=== PATIENT | male | born 1990 | race Caucasian/White ===

== ENCOUNTER 2021-11-27 19:52 | Inpatient (IN) ==
[2021-11-27] MEDS ORDERED: PROPOFOL BOLUS FROM BAG IV PRN (20:07)
[2021-11-27] MEDS ORDERED: STAT IV Infusion **Titration per Protocol STA (20:07)
--- NOTE | 2021-11-27 20:12 | Emergency Department Note ---
History of Present Illness General Chief complaint: Unresponsive Stated complaint: HEAVY DRINKING/NOSEBLEED/UNRESPONSIVE/INTUBATED Time Seen by Provider: 11/27/21 20:00 History of Present Illness 31-year-old male presents to the ED via ambulance. The patient was found unresponsive by EMS. They stated that they got called for nosebleed. When they got there, the patient was unresponsive with decreased respirations and rhonchi. The patient reportedly drank 1/5 of Emile Oconnell. The patient was intubated by EMS without any sedation. After endotracheal intubation he was given 5 mg of IV Versed for sedation. No other information available at this time. His vital signs have been stable, per EMS. The patient's mother presented with EMS. She states that he has been suffering with some cold symptoms recently and had a positive COVID test on Tuesday. The patient reportedly drank a bottle of NyQuil yesterday. He also drank a bottle of black velvet, a bottle of [place] and a bottle of something else today. The mother states that he has no known medical problems with does not go to the doctors. Home Medications Medication Instructions Recorded Confirmed Type Unobtainable 11/27/21 11/27/21 History Allergies Allergy/AdvReac Type Severity Reaction Status Date / Time No Allergy Information Allergy Unresponsiv Verified 11/27/21 21:47 Available e Past Med/Surg History Social History Smoking Status: Unknown if ever smoked Review of Systems A total of 10 systems reviewed and were otherwise negative Physical Exam Vital Signs Vital Signs - 24 hr 11/27/21 19:58 11/27/21 20:02 11/27/21 20:04 Pulse Rate 96 H 94 H 83 Pulse Rate [Apical] Pulse Rate from SpO2 Sensor 93 H 83 Pulse Rhythm Respiratory Rate 21 19 20 Respiratory Effort / Characteristics Mechanically Ventilated Blood Pressure 165/91 H 165/91 H Blood Pressure Mean 115 115 Blood Pressure Position Lying Pulse Oximetry 90 90 94 Oxygen Delivery Method Mechanical Vent Fraction of Inspired Oxygen SaO2/FiO2 Ratio Sepsis New/Unexplained Change in Mental Status Yes Sepsis Action Taken by Nursing Physician Notified End-Tidal CO2 50 46 11/27/21 20:05 11/27/21 20:08 11/27/21 20:10 Pulse Rate 91 H 85 Pulse Rate [Apical] 87 Pulse Rate from SpO2 Sensor 86 Pulse Rhythm Respiratory Rate 19 22 Respiratory Effort / Characteristics Blood Pressure Blood Pressure Mean Blood Pressure Position Pulse Oximetry 97 93 89 L Oxygen Delivery Method Mechanical Vent Fraction of Inspired Oxygen 45 SaO2/FiO2 Ratio Sepsis New/Unexplained Change in Mental Status Sepsis Action Taken by Nursing End-Tidal CO2 46 11/27/21 20:14 11/27/21 20:16 11/27/21 20:20 Pulse Rate 87 86 83 Pulse Rate [Apical] Pulse Rate from SpO2 Sensor 86 82 Pulse Rhythm Regular Respiratory Rate 22 22 19 Respiratory Effort / Characteristics Blood Pressure 143/86 H Blood Pressure Mean 105 Blood Pressure Position Pulse Oximetry 93 92 94 Oxygen Delivery Method Mechanical Vent Fraction of Inspired Oxygen 45 SaO2/FiO2 Ratio 206 Sepsis New/Unexplained Change in Mental Status Sepsis Action Taken by Nursing End-Tidal CO2 46 41 11/27/21 20:41 11/27/21 20:50 11/27/21 20:56 Pulse Rate 79 76 Pulse Rate [Apical] Pulse Rate from SpO2 Sensor 79 76 Pulse Rhythm Respiratory Rate 18 18 20 Respiratory Effort / Characteristics Blood Pressure 125/72 Blood Pressure Mean 89 Blood Pressure Position Pulse Oximetry 96 96 Oxygen Delivery Method Fraction of Inspired Oxygen 45 SaO2/FiO2 Ratio Sepsis New/Unexplained Change in Mental Status Sepsis Action Taken by Nursing End-Tidal CO2 40 39 11/27/21 21:00 11/27/21 21:01 11/27/21 21:06 Pulse Rate 77 78 77 Pulse Rate [Apical] Pulse Rate from SpO2 Sensor 77 78 76 Pulse Rhythm Respiratory Rate 20 20 20 Respiratory Effort / Characteristics Blood Pressure 101/67 105/63 Blood Pressure Mean 78 77 Blood Pressure Position Pulse Oximetry 95 95 94 Oxygen Delivery Method Fraction of Inspired Oxygen SaO2/FiO2 Ratio Sepsis New/Unexplained Change in Mental Status Sepsis Action Taken by Nursing End-Tidal CO2 37 37 35 11/27/21 21:10 11/27/21 21:15 11/27/21 21:20 Pulse Rate 77 78 78 Pulse Rate [Apical] Pulse Rate from SpO2 Sensor 77 77 77 Pulse Rhythm Respiratory Rate 20 20 20 Respiratory Effort / Characteristics Blood Pressure 98/64 L 106/66 106/67 Blood Pressure Mean 75 79 80 Blood Pressure Position Pulse Oximetry 94 94 95 Oxygen Delivery Method Fraction of Inspired Oxygen SaO2/FiO2 Ratio Sepsis New/Unexplained Change in Mental Status Sepsis Action Taken by Nursing End-Tidal CO2 35 35 34 11/27/21 21:25 11/27/21 21:30 11/27/21 21:35 Pulse Rate 77 81 74 Pulse Rate [Apical] Pulse Rate from SpO2 Sensor 75 81 73 Pulse Rhythm Respiratory Rate 20 20 20 Respiratory Effort / Characteristics Blood Pressure 104/67 111/70 109/64 Blood Pressure Mean 79 83 79 Blood Pressure Position Pulse Oximetry 95 95 97 Oxygen Delivery Method Fraction of Inspired Oxygen SaO2/FiO2 Ratio Sepsis New/Unexplained Change in Mental Status Sepsis Action Taken by Nursing End-Tidal CO2 34 34 33 11/27/21 21:40 11/27/21 21:45 11/27/21 21:50 Pulse Rate 73 73 73 Pulse Rate [Apical] Pulse Rate from SpO2 Sensor 73 73 72 Pulse Rhythm Respiratory Rate 20 20 20 Respiratory Effort / Characteristics Blood Pressure 105/64 105/62 105/62 Blood Pressure Mean 77 76 76 Blood Pressure Position Pulse Oximetry 98 98 98 Oxygen Delivery Method Fraction of Inspired Oxygen SaO2/FiO2 Ratio Sepsis New/Unexplained Change in Mental Status Sepsis Action Taken by Nursing End-Tidal CO2 33 33 33 11/27/21 21:55 11/27/21 22:00 11/27/21 22:01 Pulse Rate 73 72 Pulse Rate [Apical] 72 Pulse Rate from SpO2 Sensor 72 73 Pulse Rhythm Respiratory Rate 20 20 Respiratory Effort / Characteristics Blood Pressure 105/66 Blood Pressure Mean 79 Blood Pressure Position Pulse Oximetry 98 97 Oxygen Delivery Method Fraction of Inspired Oxygen SaO2/FiO2 Ratio Sepsis New/Unexplained Change in Mental Status Sepsis Action Taken by Nursing End-Tidal CO2 33 33 CONSTITUTIONAL/VITAL SIGNS: Reviewed / noted above. GENERAL: Patient on ventilator. Mild cough on endotracheal tube. INTEGUMENTARY: Warm, dry, and [place]. HEAD: Normocephalic. EYES: without scleral icterus or trauma. Pupils are responsive to light although a little sluggish. ENT/OROPHARYNX: dried blood in bilateral nares. Endotracheal tube 7.5, 25 cm at the lips. RESPIRATORY: Mild bilateral rhonchi . CARDIOVASCULAR: Regular rate and rhythm. GI/ABDOMEN: Soft and nontender. No organomegaly or pulsatile mass. EXTREMITIES: Warm and well perfused. BACK: No CVA tenderness. NEUROLOGICAL: No verbal response. Does not follow commands. Pupils sluggish but responsive to light. Mild cough with endotracheal tube in place. No mov ement extremities with painful stimulus. MUSCULOSKELETAL: No obvious trauma TRIAGE NURSING DOCUMENTATION REVIEWED. Procedures ABG Interpretation ABG Interpretation 1: ABG Results: 7.2 6/47/74 on 45% oxygen via ventilator Additional Comments: ABG shows a acidosis likely related to respiratory and adequate oxygenation on 45% oxygen. The ventilator rate was increased from 18-20 following this ABG. Course Administered Medications Propofol (Diprivan) 1,000 mg in 100 mls @ 16.812 mls/hr IV .Q5H57M [facility]; Protocol Stop: 11/30/21 20:14 Last Titration: 11/27/21 22:55 Dose: 12 mcg/kg/min, 10.1 mls/hr Documented by: [id number] Titration: 11/27/21 21:19 Dose: 15 mcg/kg/min, 12.6 mls/hr Documented by: [id number] Titration: 11/27/21 21:01 Dose: 18 mcg/kg/min, 15.1 mls/hr Documented by: [id number] Admin: 11/27/21 20:25 Dose: 20 mcg/kg/min, 16.8 mls/hr Documented by: [id number] Cosigned by: [id number] Discontinued Medications Sodium Chloride (Nss 1000ml) 1,000 mls @ 999 mls/hr IV .Q1H1M [facility] Stop: 11/27/21 21:15 Last Infusion: 11/27/21 21:21 Dose: 0 mls/hr Documented by: [id number] Admin: 11/27/21 20:25 Dose: 999 mls/hr Documented by: [id number] Miscellaneous (Stat Iv Infusion Titration Per Protocol) 1 ea N/A NOW STA Stop: 11/27/21 20:08 Last Admin: 11/27/21: Dose: 1 ea Documented by: [id number] Critical Care Time Critical Care Time: Yes Total Critical Care Time: 50 I have personally spent 50 minutes of critical care time in the direct management of this patient. This includes bedside care, interpretation of diagnostic studies, and testing, discussion with consultants, patient, and family members, and other required patient management activities. This 50 minutes is in excess of all separately billable procedures. Medical Decision Making Differential Diagnosis Differential includes acute cardiac dysrhythmia, microinfarction, CVA, TIA, dehydration, anemia, electrolyte disturbance, seizure, trauma, intracranial bleeding, acute vascular catastrophe, thoracic aortic dissection, PE, abdominal aortic aneurysm rupture, infection, hypoglycemia, overdose, trauma. Medical Records Attestation: I reviewed the patient's medical records. Home Medications Current Medication List: was personally reviewed by me Laboratory Data Attestation: I reviewed the patient's lab results. Result diagrams: 11/27/21 20:05 11/27/21 20:05 Lab Results 11/27/21 11/27/21 11/27/21 Range/Units 20:05 20:05 20:05 WBC 6.53 (4.8-10.8) K/uL RBC 5.11 (4.7-6.1) M/uL Hgb 15.4 (14.0-18.0) g/dL POC Hgb (14.0-18.0) g/dl Hct 44.7 (42-52) % POC Hct (42-52) % MCV 87.5 (80-100) fL MCH 30.1 (25-34) pg MCHC 34.5 (32-36) g/dL RDW Std Deviation 41.7 (36.4-46.3) fL RDW Coeff of Fili 12.9 (11.5-14.5) % Plt Count 200 (130-400) K/uL MPV 10.3 (7.4-10.4) fL Immature Gran % (Auto) 0.3 % Neut % (Auto) 72.1 % Lymph % (Auto) 19.8 % [place] % (Auto) 5.8 % Eos % (Auto) 2.0 % Baso % (Auto) 0.0 % Neut # (Auto) 4.71 (1.4-6.5) K/uL Lymph # (Auto) 1.29 (1.2-3.4) K/uL [place] # (Auto) 0.38 (0.11-0.59) K/uL Eos # (Auto) 0.13 (0-0.5) K/uL Baso # (Auto) 0.00 (0-0.2) K/uL Immature Gran # (Auto) 0.02 (0.00-0.02) K/uL PT (9.0-12.0) Seconds INR (0.9-1.1) APTT (21.0-31.0) Seconds PTT Ratio POC pH (7.35-7.45) POC pCO2 (35-46) mmHg POC pO2 (80-95) mmHg POC HCO3 (19-24) julio/L POC Base Excess (-9-1.8) julio/L POC ABG O2 Sat (90-95) % POC Sodium (135-144) mmol/L Sodium 140 (136-145) mmol/L POC Potassium (3.3-5.0) mmol/L Potassium 3.4 L (3.5-5.1) mmol/L POC Chloride (101-112) mmol/L Chloride 106 (98-107) mmol/L Carbon Dioxide 26 (21-32) mmol/L POC Total CO2 (24-31) mmol/L Anion Gap 8 (3-11) POC Anion Gap (16-25) mmol/L POC BUN (7-18) mg/dl BUN 6 (6-23) mg/dl Creatinine 0.97 (0.6-1.4) mg/dl POC Creatinine (0.6-1.3) mg/dl Est Cr Clr Drug Dosing Not Reportable Est GFR ( Amer) 121.8 ml/min Est GFR (Non-Af Amer) 105.1 ml/min BUN/Creatinine Ratio 6.2 L (10-20) Glucose 125 H (70-99(Fasting)) mg/dl POC Glucose (70-99) mg/dl POC Glucose (other) (70-99) mg/dl Lactate (0.4-2.0) mmol/L Calcium 8.3 L (8.5-10.1) mg/dl POC Ioniz Calcium Lorne (1.12-1.32) mmol/l Total Bilirubin 0.2 (0.2-1.0) mg/dl AST 20 (13-39) U/L ALT 29 (7-52) U/L Alkaline Phosphatase 77 (34-104) U/L Troponin I High Sens 7.9 (0-20) pg/ml Total Protein 6.9 (6.0-8.3) gm/dl Albumin 4.3 (3.4-5.0) gm/dl Globulin 2.6 (2.5-4.0) gm/dl Albumin/Globulin Ratio 1.7 (0.9-2) Lipase 31 (11-82) U/L Procalcitonin < 0.05 (0-0.5) ng/ml TSH (0.300-4.500) uIu/ml Urine Color Urine Appearance (Clear) Urine pH (4.5-7.5) Ur Specific Mazon (1.000-1.030) Urine Protein (Negative) Urine Glucose (UA) (Negative) Urine Ketones (Negative) Urine Blood (Negative) Urine Nitrite (Negative) Urine Bilirubin (Negative) Urine Urobilinogen (Negative) Ur Leukocyte Esterase (Negative) Urine WBC (Auto) (0-5) /hpf Urine RBC (Auto) (0-4) /hpf U Hyaline Cast (Auto) (0-5) /lpf U Epithel Cells (Auto) (0-5) /lpf Urine Bacteria (Auto) (Negative) Salicylates (3.0-30) mg/dl Urine Opiates Screen (Neg) Ur Methadone, Qual (Neg) Acetaminophen (10-30) ug/ml Urine Barbiturates (Neg) Ur Phencyclidine (PCP) (Neg) U Amphetamin/Meth Scrn (Neg) MDMA (Ecstasy) Screen (Neg) U Benzodiazepines Scrn (Neg) Ur Cocaine Metabolite (Neg) U Marijuana (THC) Screen (Neg) Ethyl Alcohol mg/dL (<10.0) mg/dl SARS-CoV-2 (PCR) (Negative) Influenza Type A (PCR) (Neg) Influenza Type B (PCR) (Neg) RSV (RT-PCR) (Neg) 11/27/21 11/27/21 11/27/21 Range/Units 20:05 20:05 20:05 WBC (4.8-10.8) K/uL RBC (4.7-6.1) M/uL Hgb (14.0-18.0) g/dL POC Hgb (14.0-18.0) g/dl Hct (42-52) % POC Hct (42-52) % MCV (80-100) fL MCH (25-34) pg MCHC (32-36) g/dL RDW Std Deviation (36.4-46.3) fL RDW Coeff of Fili (11.5-14.5) % Plt Count (130-400) K/uL MPV (7.4-10.4) fL Immature Gran % (Auto) % Neut % (Auto) % Lymph % (Auto) % [place] % (Auto) % Eos % (Auto) % Baso % (Auto) % Neut # (Auto) (1.4-6.5) K/uL Lymph # (Auto) (1.2-3.4) K/uL [place] # (Auto) (0.11-0.59) K/uL Eos # (Auto) (0-0.5) K/uL Baso # (Auto) (0-0.2) K/uL Immature Gran # (Auto) (0.00-0.02) K/uL PT 10.3 (9.0-12.0) Seconds INR 1.0 (0.9-1.1) APTT 30.8 (21.0-31.0) Seconds PTT Ratio 1.1 POC pH (7.35-7.45) POC pCO2 (35-46) mmHg POC pO2 (80-95) mmHg POC HCO3 (19-24) julio/L POC Base Excess (-9-1.8) julio/L POC ABG O2 Sat (90-95) % POC Sodium (135-144) mmol/L Sodium (136-145) mmol/L POC Potassium (3.3-5.0) mmol/L Potassium (3.5-5.1) mmol/L POC Chloride (101-112) mmol/L Chloride (98-107) mmol/L Carbon Dioxide (21-32) mmol/L POC Total CO2 (24-31) mmol/L Anion Gap (3-11) POC Anion Gap (16-25) mmol/L POC BUN (7-18) mg/dl BUN (6-23) mg/dl Creatinine (0.6-1.4) mg/dl POC Creatinine (0.6-1.3) mg/dl Est Cr Clr Drug Dosing Est GFR ( Amer) ml/min Est GFR (Non-Af Amer) ml/min BUN/Creatinine Ratio (10-20) Glucose (70-99(Fasting)) mg/dl POC Glucose (70-99) mg/dl POC Glucose (other) (70-99) mg/dl Lactate (0.4-2.0) mmol/L Calcium (8.5-10.1) mg/dl POC Ioniz Calcium Lorne (1.12-1.32) mmol/l Total Bilirubin (0.2-1.0) mg/dl AST (13-39) U/L ALT (7-52) U/L Alkaline Phosphatase (34-104) U/L Troponin I High Sens (0-20) pg/ml Total Protein (6.0-8.3) gm/dl Albumin (3.4-5.0) gm/dl Globulin (2.5-4.0) gm/dl Albumin/Globulin Ratio (0.9-2) Lipase (11-82) U/L Procalcitonin (0-0.5) ng/ml TSH 0.680 (0.300-4.500) uIu/ml Urine Color Urine Appearance (Clear) Urine pH (4.5-7.5) Ur Specific [place]on (1.000-1.030) Urine Protein (Negative) Urine Glucose (UA) (Negative) Urine Ketones (Negative) Urine Blood (Negative) Urine Nitrite (Negative) Urine Bilirubin (Negative) Urine Urobilinogen (Negative) Ur Leukocyte Esterase (Negative) Urine WBC (Auto) (0-5) /hpf Urine RBC (Auto) (0-4) /hpf U Hyaline Cast (Auto) (0-5) /lpf U Epithel Cells (Auto) (0-5) /lpf Urine Bacteria (Auto) (Negative) Salicylates (3.0-30) mg/dl Urine Opiates Screen (Neg) Ur Methadone, Qual (Neg) Acetaminophen (10-30) ug/ml Urine Barbiturates (Neg) Ur Phencyclidine (PCP) (Neg) U Amphetamin/Meth Scrn (Neg) MDMA (Ecstasy) Screen (Neg) U Benzodiazepines Scrn (Neg) Ur Cocaine Metabolite (Neg) U Marijuana (THC) Screen (Neg) Ethyl Alcohol mg/dL 453.7 H (<10.0) mg/dl SARS-CoV-2 (PCR) (Negative) Influenza Type A (PCR) (Neg) Influenza Type B (PCR) (Neg) RSV (RT-PCR) (Neg) 11/27/21 11/27/21 11/27/21 Range/Units 20:13 20:13 20:17 WBC (4.8-10.8) K/uL RBC (4.7-6.1) M/uL Hgb (14.0-18.0) g/dL POC Hgb (14.0-18.0) g/dl Hct (42-52) % POC Hct (42-52) % MCV (80-100) fL MCH (25-34) pg MCHC (32-36) g/dL RDW Std Deviation (36.4-46.3) fL RDW Coeff of Fili (11.5-14.5) % Plt Count (130-400) K/uL MPV (7.4-10.4) fL Immature Gran % (Auto) % Neut % (Auto) % Lymph % (Auto) % [place] % (Auto) % Eos % (Auto) % Baso % (Auto) % Neut # (Auto) (1.4-6.5) K/uL Lymph # (Auto) (1.2-3.4) K/uL [place] # (Auto) (0.11-0.59) K/uL Eos # (Auto) (0-0.5) K/uL Baso # (Auto) (0-0.2) K/uL Immature Gran # (Auto) (0.00-0.02) K/uL PT (9.0-12.0) Seconds INR (0.9-1.1) APTT (21.0-31.0) Seconds PTT Ratio POC pH (7.35-7.45) POC pCO2 (35-46) mmHg POC pO2 (80-95) mmHg POC HCO3 (19-24) julio/L POC Base Excess (-9-1.8) julio/L POC ABG O2 Sat (90-95) % POC Sodium (135-144) mmol/L Sodium (136-145) mmol/L POC Potassium (3.3-5.0) mmol/L Potassium (3.5-5.1) mmol/L POC Chloride (101-112) mmol/L Chloride (98-107) mmol/L Carbon Dioxide (21-32) mmol/L POC Total CO2 (24-31) mmol/L Anion Gap (3-11) POC Anion Gap (16-25) mmol/L POC BUN (7-18) mg/dl BUN (6-23) mg/dl Creatinine (0.6-1.4) mg/dl POC Creatinine (0.6-1.3) mg/dl Est Cr Clr Drug Dosing Est GFR ( Amer) ml/min Est GFR (Non-Af Amer) ml/min BUN/Creatinine Ratio (10-20) Glucose (70-99(Fasting)) mg/dl POC Glucose 129 H (70-99) mg/dl POC Glucose (other) (70-99) mg/dl Lactate (0.4-2.0) mmol/L Calcium (8.5-10.1) mg/dl POC Ioniz Calcium Lorne (1.12-1.32) mmol/l Total Bilirubin (0.2-1.0) mg/dl AST (13-39) U/L ALT (7-52) U/L Alkaline Phosphatase (34-104) U/L Troponin I High Sens (0-20) pg/ml Total Protein (6.0-8.3) gm/dl Albumin (3.4-5.0) gm/dl Globulin (2.5-4.0) gm/dl Albumin/Globulin Ratio (0.9-2) Lipase (11-82) U/L Procalcitonin (0-0.5) ng/ml TSH (0.300-4.500) uIu/ml Urine Color Yellow Urine Appearance Clear (Clear) Urine pH 5.0 (4.5-7.5) Ur Specific Mazon 1.006 (1.000-1.030) Urine Protein 2+ H (Negative) Urine Glucose (UA) Negative (Negative) Urine Ketones Negative (Negative) Urine Blood Negative (Negative) Urine Nitrite Negative (Negative) Urine Bilirubin Negative (Negative) Urine Urobilinogen Negative (Negative) Ur Leukocyte Esterase Negative (Negative) Urine WBC (Auto) 1-5 (0-5) /hpf Urine RBC (Auto) 0-4 (0-4) /hpf U Hyaline Cast (Auto) 5-10 H (0-5) /lpf U Epithel Cells (Auto) 10-20 H (0-5) /lpf Urine Bacteria (Auto) Negative (Negative) Salicylates (3.0-30) mg/dl Urine Opiates Screen Neg (Neg) Ur Methadone, Qual Neg (Neg) Acetaminophen (10-30) ug/ml Urine Barbiturates Neg (Neg) Ur Phencyclidine (PCP) Neg (Neg) U Amphetamin/Meth Scrn Neg (Neg) MDMA (Ecstasy) Screen Neg (Neg) U Benzodiazepines Scrn Pos H (Neg) Ur Cocaine Metabolite Neg (Neg) U Marijuana (THC) Screen Neg (Neg) Ethyl Alcohol mg/dL (<10.0) mg/dl SARS-CoV-2 (PCR) (Negative) Influenza Type A (PCR) (Neg) Influenza Type B (PCR) (Neg) RSV (RT-PCR) (Neg) 11/27/21 11/27/21 11/27/21 Range/Units 20:21 20:25 20:50 WBC (4.8-10.8) K/uL RBC (4.7-6.1) M/uL Hgb (14.0-18.0) g/dL POC Hgb 15.6 (14.0-18.0) g/dl Hct (42-52) % POC Hct 46 (42-52) % MCV (80-100) fL MCH (25-34) pg MCHC (32-36) g/dL RDW Std Deviation (36.4-46.3) fL RDW Coeff of Fili (11.5-14.5) % Plt Count (130-400) K/uL MPV (7.4-10.4) fL Immature Gran % (Auto) % Neut % (Auto) % Lymph % (Auto) % [place] % (Auto) % Eos % (Auto) % Baso % (Auto) % Neut # (Auto) (1.4-6.5) K/uL Lymph # (Auto) (1.2-3.4) K/uL [place] # (Auto) (0.11-0.59) K/uL Eos # (Auto) (0-0.5) K/uL Baso # (Auto) (0-0.2) K/uL Immature Gran # (Auto) (0.00-0.02) K/uL PT (9.0-12.0) Seconds INR (0.9-1.1) APTT (21.0-31.0) Seconds PTT Ratio POC pH (7.35-7.45) POC pCO2 (35-46) mmHg POC pO2 (80-95) mmHg POC HCO3 (19-24) julio/L POC Base Excess (-9-1.8) julio/L POC ABG O2 Sat (90-95) % POC Sodium 142 (135-144) mmol/L Sodium (136-145) mmol/L POC Potassium 3.5 (3.3-5.0) mmol/L Potassium (3.5-5.1) mmol/L POC Chloride 105 (101-112) mmol/L Chloride (98-107) mmol/L Carbon Dioxide (21-32) mmol/L POC Total CO2 27 (24-31) mmol/L Anion Gap (3-11) POC Anion Gap 15.0 L (16-25) mmol/L POC BUN 5 L (7-18) mg/dl BUN (6-23) mg/dl Creatinine (0.6-1.4) mg/dl POC Creatinine 1.3 (0.6-1.3) mg/dl Est Cr Clr Drug Dosing Est GFR ( Amer) ml/min Est GFR (Non-Af Amer) ml/min BUN/Creatinine Ratio (10-20) Glucose (70-99(Fasting)) mg/dl POC Glucose (70-99) mg/dl POC Glucose (other) 129 H (70-99) mg/dl Lactate 2.6 H* (0.4-2.0) mmol/L Calcium (8.5-10.1) mg/dl POC Ioniz Calcium Lorne 1.09 L (1.12-1.32) mmol/l Total Bilirubin (0.2-1.0) mg/dl AST (13-39) U/L ALT (7-52) U/L Alkaline Phosphatase (34-104) U/L Troponin I High Sens (0-20) pg/ml Total Protein (6.0-8.3) gm/dl Albumin (3.4-5.0) gm/dl Globulin (2.5-4.0) gm/dl Albumin/Globulin Ratio (0.9-2) Lipase (11-82) U/L Procalcitonin (0-0.5) ng/ml TSH (0.300-4.500) uIu/ml Urine Color Urine Appearance (Clear) Urine pH (4.5-7.5) Ur Specific Mazon (1.000-1.030) Urine Protein (Negative) Urine Glucose (UA) (Negative) Urine Ketones (Negative) Urine Blood (Negative) Urine Nitrite (Negative) Urine Bilirubin (Negative) Urine Urobilinogen (Negative) Ur Leukocyte Esterase (Negative) Urine WBC (Auto) (0-5) /hpf Urine RBC (Auto) (0-4) /hpf U Hyaline Cast (Auto) (0-5) /lpf U Epithel Cells (Auto) (0-5) /lpf Urine Bacteria (Auto) (Negative) Salicylates < 3.0 L (3.0-30) mg/dl Urine Opiates Screen (Neg) Ur Methadone, Qual (Neg) Acetaminophen < 3 L (10-30) ug/ml Urine Barbiturates (Neg) Ur Phencyclidine (PCP) (Neg) U Amphetamin/Meth Scrn (Neg) MDMA (Ecstasy) Screen (Neg) U Benzodiazepines Scrn (Neg) Ur Cocaine Metabolite (Neg) U Marijuana (THC) Screen (Neg) Ethyl Alcohol mg/dL (<10.0) mg/dl SARS-CoV-2 (PCR) (Negative) Influenza Type A (PCR) (Neg) Influenza Type B (PCR) (Neg) RSV (RT-PCR) (Neg) 11/27/21 11/27/21 11/27/21 Range/Units 20:53 21:27 22:11 WBC (4.8-10.8) K/uL RBC (4.7-6.1) M/uL Hgb (14.0-18.0) g/dL POC Hgb 14.6 (14.0-18.0) g/dl Hct (42-52) % POC Hct 43 (42-52) % MCV (80-100) fL MCH (25-34) pg MCHC (32-36) g/dL RDW Std Deviation (36.4-46.3) fL RDW Coeff of Fili (11.5-14.5) % Plt Count (130-400) K/uL MPV (7.4-10.4) fL Immature Gran % (Auto) % Neut % (Auto) % Lymph % (Auto) % [place] % (Auto) % Eos % (Auto) % Baso % (Auto) % Neut # (Auto) (1.4-6.5) K/uL Lymph # (Auto) (1.2-3.4) K/uL [place] # (Auto) (0.11-0.59) K/uL Eos # (Auto) (0-0.5) K/uL Baso # (Auto) (0-0.2) K/uL Immature Gran # (Auto) (0.00-0.02) K/uL PT (9.0-12.0) Seconds INR (0.9-1.1) APTT (21.0-31.0) Seconds PTT Ratio POC pH 7.26 L (7.35-7.45) POC pCO2 47 H (35-46) mmHg POC pO2 74 L (80-95) mmHg POC HCO3 21 (19-24) julio/L POC Base Excess -6.0 (-9-1.8) julio/L POC ABG O2 Sat 92.0 (90-95) % POC Sodium 141 (135-144) mmol/L Sodium (136-145) mmol/L POC Potassium 3.3 (3.3-5.0) mmol/L Potassium (3.5-5.1) mmol/L POC Chloride (101-112) mmol/L Chloride (98-107) mmol/L Carbon Dioxide (21-32) mmol/L POC Total CO2 23 L (24-31) mmol/L Anion Gap (3-11) POC Anion Gap (16-25) mmol/L POC BUN (7-18) mg/dl BUN (6-23) mg/dl Creatinine (0.6-1.4) mg/dl POC Creatinine (0.6-1.3) mg/dl Est Cr Clr Drug Dosing Est GFR ( Amer) ml/min Est GFR (Non-Af Amer) ml/min BUN/Creatinine Ratio (10-20) Glucose (70-99(Fasting)) mg/dl POC Glucose (70-99) mg/dl POC Glucose (other) (70-99) mg/dl Lactate 1.8 (0.4-2.0) mmol/L Calcium (8.5-10.1) mg/dl POC Ioniz Calcium Lorne (1.12-1.32) mmol/l Total Bilirubin (0.2-1.0) mg/dl AST (13-39) U/L ALT (7-52) U/L Alkaline Phosphatase (34-104) U/L Troponin I High Sens (0-20) pg/ml Total Protein (6.0-8.3) gm/dl Albumin (3.4-5.0) gm/dl Globulin (2.5-4.0) gm/dl Albumin/Globulin Ratio (0.9-2) Lipase (11-82) U/L Procalcitonin (0-0.5) ng/ml TSH (0.300-4.500) uIu/ml Urine Color Urine Appearance (Clear) Urine pH (4.5-7.5) Ur Specific Mazon (1.000-1.030) Urine Protein (Negative) Urine Glucose (UA) (Negative) Urine Ketones (Negative) Urine Blood (Negative) Urine Nitrite (Negative) Urine Bilirubin (Negative) Urine Urobilinogen (Negative) Ur Leukocyte Esterase (Negative) Urine WBC (Auto) (0-5) /hpf Urine RBC (Auto) (0-4) /hpf U Hyaline Cast (Auto) (0-5) /lpf U Epithel Cells (Auto) (0-5) /lpf Urine Bacteria (Auto) (Negative) Salicylates (3.0-30) mg/dl Urine Opiates Screen (Neg) Ur Methadone, Qual (Neg) Acetaminophen (10-30) ug/ml Urine Barbiturates (Neg) Ur Phencyclidine (PCP) (Neg) U Amphetamin/Meth Scrn (Neg) MDMA (Ecstasy) Screen (Neg) U Benzodiazepines Scrn (Neg) Ur Cocaine Metabolite (Neg) U Marijuana (THC) Screen (Neg) Ethyl Alcohol mg/dL (<10.0) mg/dl SARS-CoV-2 (PCR) POSITIVE A* (Negative) Influenza Type A (PCR) Negative (Neg) Influenza Type B (PCR) Negative (Neg) RSV (RT-PCR) Negative (Neg) Imaging Data Radiologist's Impression: Chest X-Ray 11/27/21 20:01 XR chest 1V portable supine CLINICAL HISTORY: Intubation. COMPARISON STUDY: No previous studies for comparison. FINDINGS: Tip of endotracheal tube is 3.8 cm above the sujatha. No pneumothorax is identified on this supine exam. Left lower lobe airspace opacity is present. Cardiac silhouette is prominent, likely technical. No evidence for pulmonary edema. No definite pleural effusion. Possible suprahilar opacities which are likely artifactual. IMPRESSION: 1. Tip of endotracheal tube 3.8 cm above the sujatha. 2. Left lower lobe airspace opacity. This could reflect pneumonia, aspiration pneumonitis or atelectasis. Possible suprahilar opacities. ACT 112: Negative or not required by law. Electronically signed by: Dhaval Garibay M.D. 11/27/2021 8:[address] 11/27/21 20:07 CT OF THE HEAD WITHOUT CONTRAST CLINICAL HISTORY: unresponsive COMPARISON STUDY: No previous studies for comparison. CT DOSE: 773.57 mGy.cm TECHNIQUE: Helical axial images of the head were obtained without IV contrast. Automated exposure control was utilized for the study. A dose lowering technique was utilized adhering to the principles of ALARA. FINDINGS: No acute intracranial hemorrhage, midline shift or mass effect is present. The ventricular system is unremarkable. The basal cisterns are patent. No extra-axial collections are present. There are no findings to suggest acute dural sinus thrombosis or acute territorial infarct. No significant calvarial abnormalities are present. Ethmoid sinus mucosal thickening is incidentally noted. There are suspected small occipital/upper cervical lymph nodes. IMPRESSION: No acute intracranial findings. ACT 112: Negative or not required by law. Electronically signed by: Dhaval Garibay M.D. 11/27/2021 8:40 PM ECG Data Attestation: I personally reviewed and interpreted this ECG as follows: Additional Comments: Twelve-lead EKG: Per my interpretation shows a sinus tachycardia rate of 103. No ST elevation. No PVCs. Normal QTC. MDM Narrative 31-year-old male presents intubated by EMS. He reportedly drank 1/5 of [place]. He was unresponsive when EMS arrived and has some rhonchi and respiratory issues for which she was intubated. Transported here for further evaluation. Patient does have some dried blood in the nares bilaterally. Endotracheal tube is in place. Mild cough against ventilator but otherwise no purposeful movements and no movement to painful stimuli. EKG shows a sinus tach. Chest x-ray shows a possible left lower lobe opacity. This would be most likely aspiration. CBC and chemistry panel was unremarkable. ABG shows a mild respiratory acidosis. Urinalysis was negative. Alcohol level is 453. CT scan of the brain did not show acute process. Lactic acid was 2.6. Procalcitonin was negative. The test results are noted above. COVID test was positive. The patient remained stable on the ventilator. He was placed on a propofol drip for sedation. He was given a liter of normal saline IV. He will be seen by the hospitalist and check airman for further evaluation and care. Impression & Plan Unresponsive, Respiratory failure, Alcohol intoxication, COVID-19 Discharge Plan Visit Data Chief Complaint: Unresponsive Stated Complaint: HEAVY DRINKING/NOSEBLEED/UNRESPONSIVE/INTUBATED ED Provider: Andrei Aviles Discharge Problem: Unresponsive, Respiratory failure, Alcohol intoxication, COVID-19 Patient Disposition: Being Evaluated by Hospitalist Forms Stand Alone Forms: [employer] Prescriptions Prescriptions: No Action Unobtainable RF: 0 Referrals Referrals: PCP,NO [Primary Care Provider] -
[2021-11-27] MEDS ORDERED: SODIUM CHLORIDE 0.9% 1000ML 1,000 ML IV SCH (20:15)
--- NOTE | 2021-11-27 20:24 | XRay Report ---
XR chest 1V portable supine CLINICAL HISTORY: Intubation. COMPARISON STUDY: No previous studies for comparison. FINDINGS: Tip of endotracheal tube is 3.8 cm above the sujatha. No pneumothorax is identified on this supine exam. Left lower lobe airspace opacity is present. Cardiac silhouette is prominent, likely janette hnical. No evidence for pulmonary edema. No definite pleural effusion. Possible suprahilar opacities which are likely artifactual. IMPRESSION: 1. Tip of endotracheal tube 3.8 cm above the sujatha. 2. Left lower lobe airspace opacity. This could reflect pneumonia, aspiration pneumonitis or atelecta sis. Possible suprahilar opacities. ACT 112: Negative or not required by law. Electronically signed by: Dhaval Garibay M.D. 11/27/2021 8:22 PM
[2021-11-27] MEDS: propofoL 1,000 MG/100 ML VIAL IV SCH (20:25)
[2021-11-27 20:26] LABS: Eosinophils # (auto) 0.13 K/uL (0-0.5); Hematocrit (blood only) 44.7 % (42-52); Hemoglobin 15.4 g/dL (14.0-18.0); Immature Granulocytes # (auto) 0.02 K/uL (0.00-0.02); Immature Granulocytes % (auto) 0.3 %; Lymphocytes # (auto) 1.29 K/uL (1.2-3.4); Lymphocytes % (auto) 19.8 %; Mean Corpuscular Hemoglobin 30.1 pg (25-34); Mean Corpuscular Hgb Conc 34.5 g/dL (32-36); Mean Corpuscular Volume 87.5 fL (80-100); Mean Platelet Volume 10.3 fL (7.4-10.4); Monocytes # (auto) 0.38 K/uL (0.11-0.59); Monocytes % (auto) 5.8 %; Neutrophils # (auto) 4.71 K/uL (1.4-6.5); Neutrophils % (auto) 72.1 %; Platelet Count 200 K/uL (130-400); RDW Coefficient of Variation 12.9 % (11.5-14.5); RDW Standard Deviation 41.7 fL (36.4-46.3); Red Blood Count 5.11 M/uL (4.7-6.1); White Blood Count 6.53 K/uL (4.8-10.8)
[2021-11-27 20:30] LABS: Appearance Urine Clear (Clear); Bacteria Urine Automated Negative (Negative); Bilirubin Urine Negative (Negative); Blood Urine Negative (Negative); Color Urine Yellow; Glucose Urine UA Negative (Negative); Ketones Urine Negative (Negative); Leukocyte Esterase Urine Negative (Negative); Nitrite Urine Negative (Negative); Protein Urine 2+ (Negative); RBC Urine Automated 0-4 /hpf (0-4); Specific Gravity Urine 1.006 (1.000-1.030); Urobilinogen Urine Negative (Negative)
[2021-11-27 20:35] LABS: iSTAT Creatinine 1.3 mg/dl (0.6-1.3); iSTAT Hemoglobin 15.6 g/dl (14.0-18.0); iSTAT Ionized Calcium 1.09 mmol/l (1.12-1.32); iSTAT Potassium 3.5 mmol/L (3.3-5.0)
[2021-11-27 20:40] LABS: Partial Thromboplastin Ratio 1.1; Partial Thromboplastin Time 30.8 Seconds (21.0-31.0); Prothrombin Time 10.3 Seconds (9.0-12.0)
--- NOTE | 2021-11-27 20:41 | CT Scan Report ---
CT OF THE HEAD WITHOUT CONTRAST CLINICAL HISTORY: unresponsive COMPARISON STUDY: No previous studies for comparison. CT DOSE: 773.57 mGy.cm TECHNIQUE: Helical axial images of the head were obtained without IV contrast. Automated exposure con trol was utilized for the study. A dose lowering technique was utilized adhering to the principles o f ALARA. FINDINGS: No acute intracranial hemorrhage, midline shift or mass effect is present. The ventricular system is unremarkable. The basal cisterns are patent. No extra-axial collections are present. There are no findings to suggest acute dural sinus thrombosis or acute territorial infarct. No significant calvarial abnormalities are present. Ethmoid sinus mucosal thickening is incidentally noted. There ar e suspected small occipital/upper cervical lymph nodes. IMPRESSION: No acute intracranial findings. ACT 112: Negative or not required by law. Electronically signed by: Dhaval Garibay M.D. 11/27/2021 8:40 PM
[2021-11-27 20:49] LABS: Troponin I High Sensitivity 7.9 pg/ml (0-20)
[2021-11-27 20:53] LABS: Amphetamines+Metham, Urine Neg (Neg); Barbiturates, Urine Neg (Neg); Benzodiazepine, Urine Pos (Neg); Cocaine, Urine Neg (Neg); MDMA (Ecstacy), Urine Neg (Neg); Methadone, Urine Neg (Neg); Opiate, Urine Neg (Neg); Phencyclidine, Urine Neg (Neg)
[2021-11-27 20:54] LABS: Alanine Aminotransferase 29 U/L (7-52); Albumin Globulin Ratio 1.7 (0.9-2); Albumin Level 4.3 gm/dl (3.4-5.0); Alkaline Phosphatase 77 U/L (34-104); Anion Gap 8 (3-11); Aspartate Aminotransferase 20 U/L (13-39); BUN Creatinine Ratio 6.2 (10-20); Bilirubin,Total 0.2 mg/dl (0.2-1.0); Blood Urea Nitrogen 6 mg/dl (6-23); Calcium 8.3 mg/dl (8.5-10.1); Carbon Dioxide 26 mmol/L (21-32); Chloride 106 mmol/L (98-107); Est GFR (African American) 121.8 ml/min; Est GFR (Non-African American) 105.1 ml/min; Globulin 2.6 gm/dl (2.5-4.0); Glucose 125 mg/dl (70-99(Fasting)); Lipase 31 U/L (11-82); Potassium 3.4 mmol/L (3.5-5.1); Sodium 140 mmol/L (136-145); Total Protein 6.9 gm/dl (6.0-8.3)
[2021-11-27 21:08] LABS: iSTAT Arterial Blood Gas HCO3 21 meg/L (19-24); iSTAT Arterial Blood Gas pCO2 47 mmHg (35-46); iSTAT Arterial Blood Gas pH 7.26 (7.35-7.45); iSTAT Arterial Blood Gas pO2 74 mmHg (80-95); iSTAT Carbon Dioxide 23 mmol/L (24-31); iSTAT Hematocrit 43 % (42-52); iSTAT Hemoglobin 14.6 g/dl (14.0-18.0); iSTAT Potassium 3.3 mmol/L (3.3-5.0); iSTAT Sodium 141 mmol/L (135-144)
[2021-11-27 21:16] LABS: Acetaminophen < 3 ug/ml (10-30); Salicylate < 3.0 mg/dl (3.0-30)
[2021-11-27 22:28] LABS: Influenza A virus by PCR Negative (Neg); Influenza B virus by PCR Negative (Neg); RSV by PCR Negative (Neg)
[2021-11-27] MEDS ORDERED: CONSULT PHARMACY STA (22:39)
[2021-11-27 23:01] LABS: SARS CoV2 RNA(COVID-19) InHosp POSITIVE (Negative)
[2021-11-28] MEDS ORDERED: ICU PROTOCOL FOR HYPERGLYCEMIA PRN (00:06)
[2021-11-28] MEDS ORDERED: AMPICILLIN/SULBACTAM CONSULT ACTIVE PRN (00:12)
[2021-11-28] MEDS ORDERED: fentaNYL citrate 100 MCG/2 ML VIAL IV PRN (00:24)
--- NOTE | 2021-11-28 00:30 | Critical Care Consultation ---
Date of Consultation November 28, 2021 Assessment & Plan (1) Admitted to intensive care unit: Reason Critically Ill: 31-year-old male requiring intubation and sedation in the setting of EtOH overdose. Patient consistently testing positive for COVID-19. NEURO - * CAM ICU: Unable to assess. * Unresponsive: * Likely 2/2 EtOH overdose. * Medical EtOH 453.7. Will recheck in AM. * To remain intubated until EtOH clears. * CT Head/Brain unremarkable. * No falls, trauma, etc reported. * There was question of NyQuil use in large amounts as well. APAP level WNL. Hospitalist discussed w/ Poison Control. Continue to monitor for now. NAC not recommended currently. CARDIAC/VASCULAR - * No h/o cardiovascular disease otherwise. * Monitor on telemetry. RESPIRATORY - * Respiratory Failure: * Likely 2/2 EtOH overdose. * Titrate down ventilator settings as tolerated. GI/NUTRITION - * OGT in place. * NPO overnight. Anticipate early extubation. RENAL/LYTES - * Hypokalemia. Replace * IVF: NSS - * Cleaning in place - Strict I&Os. ENDO - * No h/o DM or Thyroid Dz * BSGs per unit protocol. ISS --> gtt per unit policy. HEME - * Nosebleeds: * Apparently these have been recurrent. * Heme/Coags wnl. * Outpatient ENT f/u ID - * COVID-19 Positive: * Reported fevers at home. * Intubated, but not 2/2 respiratory component. * No indication for treatment modalities otherwise at this point. * ?? Aspiration pneumonitis: * Unasyn for now. Can transition to PO Augmentin when able. LINES/IV ACCESS - * PIVs x3 * ETT * OGT * Cleaning DVT PROPHYLAXIS - * Hold overnight in the setting of recent nosebleeds and plan for early extubation. * SCDs I have personally spent 35 minutes of critical care time in the direct managem ent of this patient. This is a life/limb threatening event. This includes time spent evaluating patient, direct bedside care, chart review, placing orders, interpretation of diagnostic studies, discussion with consultants, patient, and family members, as well as other required patient management activities. This time is exclusive of all separately billable procedures, and teaching time and separate from and in addition to any other critical care service time. Thank you for allowing us to participate in the care of this patient. Please refer to my attending physician's documentation for any further recommendations. (2) Alcohol intoxication: (3) COVID-19: (4) Respiratory failure: (5) Unresponsive: Supervising Physician Co-Signing Physician Notes Agree with the note as above. Patient self extubated today. Appears to be maintaining his airway. Remains hemodynamically stable. Monitor for signs of alcohol withdrawal. We will give a dose of labetalol for hypertension. COVID- 19 likely a incidental finding. He does not have clinical findings of symptomatic COVID. Chest x-ray with hypoventilatory changes and atelectasis. History of Present Illness Attending Physician: Von Brown MD History of Present Illness Patient is a 31-year-old male with no reported significant past medical history who presented to the emergency department intubated for suspected alcohol overdose. Patient has been apparently struggling with nosebleeds recently. Additionally, the patient was having fevers and symptoms consistent with COVID- 19 diagnosis. He had taken a home test which was positive. He was self- medicating with NyQuil and alcohol. Patient had apparently taken a whole bottle of NyQuil over a 48-hour period. Additionally, he drank several ounces of alcohol. His mother found him unconscious and contacted EMS. There is no reports of falls, injury, or trauma otherwise. He was intubated in route to the emergency department. Upon evaluation in the emergency department, CT of the head was obtained which was found to be unremarkable. Medical alcohol greater than 450. Patient remains sedated on propofol. Patient tested positive for Covid. Patient unable to contribute to history of present illness. Allergies Allergy/AdvReac Type Severity Reaction Status Date / Time No Allergy Information Allergy Unresponsiv Verified 11/27/21 21:47 Available e Home Medications Medication Instructions Recorded Confirmed Type Unobtainable 11/27/21 11/27/21 History Patient History Social History Smoking Status: Unknown if ever smoked Hx Alcohol Use: Yes Preferred Language: Lithuanian Piano Case Maker Required: No Beliefs That Will Affect Care: None Current Living Situation: Family Assistive Devices: None Review of Systems Review of Systems: Unobtainable due to cognitive status and Unobtainable due to endotracheal tube Physical Exam Physical Exam: VITAL SIGNS - Vital signs and nursing notes were reviewed. GENERAL - 31-year-old male appearing his stated age who is in no acute distress. Intubated and sedated. SKIN - Without rashes. HEAD - NC/AT. EYES - PERRL with EOMI bilaterally. Sclera anicteric. EARS - No deformities of external structures noted on gross examination bilaterally. NOSE - Midline and without cyanosis. Dried blood noted to the LEFT naris. MOUTH/OROPHARYNX - ETT/OGT in place. Without perioral cyanosis. NECK - Neck with FROM. Supple to palpation. No lymphadenopathy noted. No nuchal rigidity. LUNGS - Chest wall symmetric without accessory muscle use, intercostals retractions, or central cyanosis. Breath sounds diminished throughout. CARDIAC - RRR with S1/S2. No murmur, rubs, or gallops appreciated. ABDOMEN - Abdominal contour obese without pulsations or visible masses. BS normoactive all four quadrants. No tenderness, palpable masses, hepatosplenomegaly, or ascites noted. EXTREMITIES - No clubbing or peripheral cyanosis. No pretibial edema present. +3/5 radial and dorsalis pedis pulses palpated throughout. NEUROLOGIC - No focal neurological deficits noted. Unable to fully assess secondary to AMS/sedation. Results & Data Results & Data ([facility]) Vital Signs (Past 12 Hours) Vital Signs Pulse Pulse Resp BP Pulse Ox 11/27/21 23:40 63 20 99 11/27/21 23:25 66 20 100/69 100 11/27/21 23:20 66 20 102/68 100 11/27/21 23:15 68 20 102/62 100 11/27/21 23:10 68 20 101/61 100 11/27/21 23:05 68 20 101/60 99 11/27/21 23:00 69 20 100/62 99 11/27/21 22:55 69 20 100/60 99 11/27/21 22:50 69 20 100/60 99 11/27/21 22:45 70 20 101/61 99 11/27/21 22:40 70 20 102/59 L 98 11/27/21 22:35 71 20 100/60 99 11/27/21 22:30 71 20 103/62 98 11/27/21 22:25 71 20 102/60 98 11/27/21 22:20 71 20 102/61 98 11/27/21 22:15 71 20 103/62 98 11/27/21 22:11 70 20 103/61 98 11/27/21 22:05 72 20 106/61 98 11/27/21 22:01 72 11/27/21 22:00 72 20 97 11/27/21 21:55 73 20 105/66 98 11/27/21 21:50 73 20 105/62 98 11/27/21 21:45 73 20 105/62 98 11/27/21 21:40 73 20 105/64 98 11/27/21 21:35 74 20 109/64 97 11/27/21 21:30 81 20 111/70 95 11/27/21 21:25 77 20 104/67 95 11/27/21 21:20 78 20 106/67 95 11/27/21 21:15 78 20 106/66 94 11/27/21 21:10 77 20 98/64 L 94 11/27/21 21:06 77 20 105/63 94 11/27/21 21:01 78 20 101/67 95 11/27/21 21:00 77 20 95 11/27/21 20:56 20 11/27/21 20:50 76 18 125/72 96 11/27/21 20:41 79 18 96 11/27/21 20:20 83 19 94 11/27/21 20:16 86 22 143/86 H 92 11/27/21 20:14 87 22 93 11/27/21 20:10 85 22 89 L 11/27/21 20:08 91 H 19 93 11/27/21 20:05 87 97 11/27/21 20:04 83 20 165/91 H 94 11/27/21 20:02 94 H 19 90 11/27/21 19:58 96 H 21 165/91 H 90 Coding Level of Care Code Critical Care 1st 30-74 mins Diagnoses Admitted to intensive care unit Z78.9 Alcohol intoxication F10.929 COVID-19 U07.1 Respiratory failure J96.90 Unresponsive R41.89 Time Spent (min) 35
[2021-11-28] MEDS: AMPICILLIN/SULBACTAM SOD 3,000 MG in 0.9 % SODIUM CHLORIDE 100 ML IV SCH ×4 (00:48→19:44)
[2021-11-28] MEDS: POTASSIUM CHLORIDE / WTR 10 MEQ/100 ML PLCT IV SCH ×2 (00:48→01:49)
[2021-11-28] MEDS: SODIUM CHLORIDE 0.9% 1000ML 1,000 ML IV SCH ×2 (00:48→10:40)
--- NOTE | 2021-11-28 01:18 | History and Physical Report ---
DATE OF ADMISSION: 11/27/2021. CHIEF COMPLAINT: Unresponsiveness. HISTORY OF PRESENT ILLNESS: This is a 31-year-old male with no significant past medical history, questionable hypertension, on and off he has nosebleeds, comes because of unresponsiveness at home. The patient is having COVID symptoms for 2 days, had fever, and he was tested with home test on Tuesday, it was positive. As per the mother, he was taking NyQuil and said his fever resolved, but it looks like the last 2 days he took over 1 bottle of NyQuil and today he went to his grandfather's house next door and was drinking alcohol, looks like he drank a bottle of [place], a bottle of [place], and another bottle and mother does not know why he was so heavily today. She went for groceries and when she came back, she tried to ask her son to come up to help her, but he was not waking up. So when she went and tried to wake him up, he was sitting in a chair and was having nose bleeding and was unresponsive. She threw whole jug of water on his face, but he did not wake up. So then they called EMS. Per the EMS, he was unresponsive. He was intubated in the field and given Versed and brought him here. Currently, he is on propofol status post intubation. Hemodynamically stable. As per the mother, she checked his blood pressure machine at home and his blood pressure was in systolic 200s and diastolic in 140s yesterday and 190s /130s. He does not go to doctors. Whenever he is stressed, she thinks may be his blood pressure shoots up and he gets nosebleeds. He is hemodynamically stable currently. LFTs are okay. Creatinine is okay. Urinalysis is negative. Urine drug screen positive for benzos, but otherwise negative. Alcohol level came as 453. SARS-CoV-[address] of the head okay. NO Falls or suicidal as per mother. ALLERGIES: Not available at this time. PAST MEDICAL HISTORY: As per HPI. Also has DUI as per mother. PAST SURGICAL HISTORY: He had cholecystectomy and tonsillectomy. MEDICATIONS: Just [id number] medications. FAMILY HISTORY: Father had a massive heart attack at the age of 63, he also had a history of diabetes. Family history is significant for diabetes on Father's side and mother's side have cancer. SOCIAL HISTORY: Drinks alcohol. Chews tobacco. No drug use. REVIEW OF SYSTEMS: Unobtainable at this time. PHYSICAL EXAMINATION: GENERAL: The patient is status post intubation and sedated. VITAL SIGNS: Temperature afebrile, pulse 72, respiratory rate 20, blood pressure 105/66, oxygen 97% on mechanical vent. HEENT: Pupils sluggish to react. No facial droop seen. Some dried blood from the nostrils seen. NECK: No neck masses. CARDIOVASCULAR: S1 and S2 heard. Regular rate and rhythm. No murmur, no gallop. RESPIRATORY SYSTEM: Normal AP diameter. No accessory muscle use. No wheezing, no crackles. ABDOMEN: Soft, no distention. Bowel sounds present. CENTRAL NERVOUS SYSTEM: Currently status post intubated and sedated. EXTREMITIES: No edema, no erythema seen. LABORATORY: WBC 6.5, hemoglobin 15.4, hematocrit 44.7, platelets 200. PT 10.3, INR 1, APTT 30.8. Point of care pH 7.26, point of care pCO2 of 47, pO2 of 74, bicarb 21. Sodium 140, potassium 3.4, chloride 106, CO2 of 26, BUN 6, creatinine 0.9, serum glucose 125, lactate initially 2.2, repeat 1.8, calcium 8.3, total bilirubin 0.2, AST 20, ALT 29, alkaline phosphatase 77. Troponin 1 high sensitivity is 7.9. Lipase 31. Procalcitonin is less than 0.05. TSH 0.6. Urinalysis negative. Urine drug screen, salicylate less than 3, acetaminophen less than 3, urine benzodiazepines positive. Ethyl alcohol 453. SARS-CoV-2 PCR positive. Influenza A and B PCR negative. RSV PCR negative. IMAGING DATA: CT of the head without contrast, no acute findings. Chest x-ray, tip of endotracheal tube 3.8 cm above the sujatha. Left lower lobe airspace opacities, which could represent pneumonia, aspiration pneumonia, or atelectasis. EKG: Sinus tachycardia at a rate of 103. No previous ECGs available. ASSESSMENT AND PLAN: This 31-year-old male presents with an unresponsive episode. 1. Unresponsive possibly secondary to alcohol intoxication, also has history of COVID, also drinking NyQuil, as per mother drank one bottle of NyQuil in 2 days. Labs look okay. His urine drug screen shows salicylates less than 3 and acetaminophen less than 3, positive for benzos, and ethyl alcohol 453. Discussed with Poison Control as Tylenol level is less than 3 and his LFTs are okay, they want to monitor for now. Mother says he was not suicidal nor as far as she knows he did not fall and no drinking Antifreeze, he was drinking alcohol. Currently intubated. We will closely monitor in the ICU. IV fluids. 2. Possible left lower lobe pneumonia, possible aspiration pneumonitis: Empirically starting on Unasyn. Will monitor. 3. COVID positive: As per mother, he took the vaccine, but not sure about the booster. Will monitor. If any concerns, will start on remdesivir and steroids. 4. Questionable hypertension: Currently blood pressure is okay, will monitor. Needs followup. 5. Deep venous thrombosis prophylaxis: Sequential compression devices for now. DISPOSITION: Closely monitor in the ICU. Level 1 full code. Job ID: [id number] MTDD
[2021-11-28 01:26] LABS: HCO3 ABG 20 mmol/L (19-24); Oxygen Saturation ABG 99.4 % (90-95); PCO2 ABG 33 mmHg (35-46); PO2 ABG 183 mmHg (80-95)
[2021-11-28 01:28] LABS: Allen Test Pos (Pos)
[2021-11-28] MEDS: propofoL 1,000 MG/100 ML VIAL IV SCH ×4 (03:53→13:48)
[2021-11-28 05:48] LABS: Basophils # (auto) 0.01 K/uL (0-0.2); Basophils % (auto) 0.1 %; Eosinophils # (auto) 0.02 K/uL (0-0.5); Eosinophils % (auto) 0.2 %; Hematocrit (blood only) 44.1 % (42-52); Hemoglobin 15.7 g/dL (14.0-18.0); Immature Granulocytes # (auto) 0.04 K/uL (0.00-0.02); Immature Granulocytes % (auto) 0.3 %; Lymphocytes # (auto) 1.61 K/uL (1.2-3.4); Lymphocytes % (auto) 13.8 %; Mean Corpuscular Hemoglobin 31.2 pg (25-34); Mean Corpuscular Hgb Conc 35.6 g/dL (32-36); Mean Corpuscular Volume 87.7 fL (80-100); Mean Platelet Volume 10.5 fL (7.4-10.4); Monocytes # (auto) 0.53 K/uL (0.11-0.59); Monocytes % (auto) 4.5 %; Neutrophils # (auto) 9.47 K/uL (1.4-6.5); Neutrophils % (auto) 81.1 %; Platelet Count 243 K/uL (130-400); RDW Standard Deviation 42.1 fL (36.4-46.3); Red Blood Count 5.03 M/uL (4.7-6.1); White Blood Count 11.68 K/uL (4.8-10.8)
[2021-11-28 05:55] LABS: iSTAT Allen Test Pass; iSTAT Art Bld Gas pCO2 Correct 35 mmHg (35-46); iSTAT Art Bld Gas pH Corrected 7.378 (7.35-7.45); iSTAT Arterial Blood Gas HCO3 21 meg/L (19-24); iSTAT Arterial Blood Gas pCO2 36 mmHg (35-46); iSTAT Arterial Blood Gas pH 7.37 (7.35-7.45); iSTAT Arterial Blood Gas pO2 122 mmHg (80-95); iSTAT Arterial Blood Gas pO2 C 119; iSTAT Carbon Dioxide 22 mmol/L (24-31); iSTAT FiO2 40 %; iSTAT Hematocrit 43 % (42-52); iSTAT Hemoglobin 14.6 g/dl (14.0-18.0); iSTAT Potassium 3.5 mmol/L (3.3-5.0); iSTAT Site R Radial; iSTAT Sodium 145 mmol/L (135-144)
[2021-11-28 05:55] LABS: Prothrombin Time 10.4 Seconds (9.0-12.0)
[2021-11-28 06:14] LABS: Creatinine Clr Calc Pharmacy 236.3 ml/min; Est GFR (African American) > 150.0 ml/min; Est GFR (Non-African American) 131.5 ml/min
[2021-11-28 06:15] LABS: Alanine Aminotransferase 30 U/L (7-52); Albumin Level 4.1 gm/dl (3.4-5.0); Alkaline Phosphatase 75 U/L (34-104); Anion Gap 11 (3-11); Aspartate Aminotransferase 21 U/L (13-39); BUN Creatinine Ratio 9.2 (10-20); Bilirubin,Total 0.2 mg/dl (0.2-1.0); Blood Urea Nitrogen 6 mg/dl (6-23); Calcium 8.2 mg/dl (8.5-10.1); Carbon Dioxide 21 mmol/L (21-32); Chloride 111 mmol/L (98-107); Glucose 118 mg/dl (70-99(Fasting)); Magnesium 1.9 mg/dl (1.7-2.4); Phosphorus 3.1 mg/dl (2.5-4.9); Potassium 3.5 mmol/L (3.5-5.1); Sodium 143 mmol/L (136-145); Total Protein 6.6 gm/dl (6.0-8.3)
--- NOTE | 2021-11-28 07:38 | XRay Report ---
SINGLE VIEW CHEST CLINICAL HISTORY: Respiratory failure. FINDINGS: An AP, portable, upright chest radiograph is compared to study dated 11/27/2021. The examina tion is degraded by portable technique and patient rotation. An endotracheal tube is unchanged in pos ition. An enteric tube has been placed. The tip projects below the diaphragm over the stomach. The ca rdiomediastinal silhouette is unremarkable. There are low lung volumes with bibasilar atelectasis. Th e lungs and pleural spaces are otherwise clear. No pneumothorax is seen. The bony thorax is grossly i ntact. IMPRESSION: 1. Lines and tubes as above. 2. Low lung volumes with bibasilar atelectasis. ACT 112: Negative or not required by law. Electronically signed by: Sanford Chinchilla M.D. 11/28/2021 7:35 AM
--- NOTE | 2021-11-28 09:22 | Electrocardiogram Report ---
Test Reason : Blood Pressure : / mmHG Vent. Rate : 103 BPM Atrial Rate : 103 BPM P-R Int : 148 ms QRS Dur : 082 ms QT Int : 348 ms P-R-T Axes : 046 -06 071 degrees QTc Int : 455 ms Sinus tachycardia Nonspecific T wave abnormality Lateral leads Abnormal ECG No previous ECG available for comparison Confirmed by Shaggy Mortensen ([id number]) on 11/28/2021 9:21:43 AM Referred By: REFERRED SELF Confirmed By:Shaggy Mortensen
--- NOTE | 2021-11-28 09:31 | Electrocardiogram Report ---
Test Reason : Blood Pressure : / mmHG Vent. Rate : 064 BPM Atrial Rate : 064 BPM P-R Int : 166 ms QRS Dur : 082 ms QT Int : 404 ms P-R-T Axes : 054 009 075 degrees QTc Int : 416 ms Normal sinus rhythm Nonspecific T wave abnormality Lateral leads Abnormal ECG When compared with ECG of 27-NOV-2021 19:56, Vent. rate has decreased BY 39 BPM Confirmed by Shaggy Mortensen ([id number]) on 11/28/2021 9:31:01 AM Referred By: REFERRED SELF Confirmed By:Shaggy Mortensen
--- NOTE | 2021-11-28 09:59 | Hospitalist Progress Note ---
Date of Service November 28, 2021 Assessment & Plan (1) Alcohol intoxication: (2) COVID-19: (3) Unresponsive: (4) Respiratory failure: Plan: This is a 31-year-old male who was found unresponsive, and was intubated on the way to the hospital. 1. Unresponsive - possibly secondary to alcohol intoxication, also has history of COVID, also drinking NyQuil, as per mother drank one bottle of NyQuil in 2 days. - Labs reviewed. His urine drug screen shows salicylates less than 3 and acetaminophen less than 3, positive for benzos, and ethyl alcohol 453. - Discussed with Poison Control as Tylenol level is less than 3 and his LFTs are okay, they want to monitor for now. Mother says he was not suicidal as far as she knows he did not fall and no drinking Antifreeze, he was drinking alcohol. Patient was intubated, self extubated this morning in ICU. Reports that he was drinking alcohol because he was trying to help with COVID symptoms/self medicate. Did not mean to hurt himself in any way. Now says that what he did was "stupid " - continue IV fluids -Downgrade to PCU -Monitor for signs of alcohol withdrawal He is hypertensive, also has history of hypertension Received IV labetalol in ICU, will give another dose now Previously on lisinopril, currently does not see any PCP, will restart lisinopril And will continue to monitor BMP 2. Possible left lower lobe pneumonia, possible aspiration pneumonitis: Empirically starting on Unasyn. Continue for now. Will monitor. 3. COVID positive: As per mother, he took the vaccine, but not sure about the booster. Will monitor. If any concerns, will start on remdesivir and steroids. 4. Hx of hypertension: Currently quite hypertensive Could be secondary to alcohol withdrawal In the past was on lisinopril, will restart now Received labetalol IV, in the ICU, will give another dose now Reports not having PCP, he will need outpatient follow-up DVT prophylaxis: SCDs ordered on admission, possibly secondary to history of epistaxis prior to admission. Continue SCDs. DISPOSITION:Downgrade from ICU -> PCU Code: full code. Admission and Anticipated Discharge Date Admission Date: November 27, 2021 Subjective Patient found unresponsive after drinking substantial amount of liquor He tested positive at home for COVID (also positive for COVID in ED) Self extubated this morning in ICU He says he was drinking alcohol because he was trying to help with symptoms of COVID. Denies any chest pain, or significant shortness of breath, however was h aving some headache, and some loss of taste. Currently feels well, he is alert oriented answering questions appropriately Denies any fevers, chills, chest pain, shortness of breath, abdominal pain, n ausea vomiting Review of Systems Review of Systems: All systems reviewed & are unremarkable except as noted in Subjective Physical Exam Physical Exam: GENERAL:Obese young male, in no acute distress HEENT: NC/AT, EOMI, PERRL NECK: No neck masses. CARDIOVASCULAR: S1 and S2 heard. Regular rate and rhythm. No murmur, no gallop. RESPIRATORY: Normal AP diameter. No accessory muscle use. No wheezing, no crackles. ABDOMEN: Soft, obese, + Bowel sounds, nontender to palpation NEURO:Alert oriented, answers questions appropriately, no facial asymmetry, speech fluent, moves extremities EXTREMITIES: No edema, no erythema seen. Results & Data Results & Data ([facility]) Vital Signs (Past 12 Hours) Vital Signs Temp Pulse Pulse Resp BP BP Pulse Ox 11/28/21 07:30 82 18 95 11/28/21 07:15 88 28 H 153/110 H 94 11/28/21 07:00 75 21 100 11/28/21 06:45 73 20 98 11/28/21 06:30 74 20 98 11/28/21 06:15 72 20 98 11/28/21 06:00 70 20 122/77 99 11/28/21 05:00 75 20 122/72 93 11/28/21 04:56 36.6 C 11/28/21 04:11 75 20 99 11/28/21 04:00 76 20 124/87 100 11/28/21 03:00 67 20 119/86 100 11/28/21 02:00 70 20 104/72 100 11/28/21 01:05 72 20 97/74 L 99 11/28/21 00:13 36.5 C 69 20 110/69 100 11/27/21 23:40 63 20 99 11/27/21 23:25 66 20 100/69 100 11/27/21 23:20 66 20 102/68 100 11/27/21 23:15 68 20 102/62 100 11/27/21 23:10 68 20 101/61 100 11/27/21 23:05 68 20 101/60 99 11/27/21 23:00 69 20 100/62 99 11/27/21 22:55 69 20 100/60 99 11/27/21 22:50 69 20 100/60 99 11/27/21 22:45 70 20 101/61 99 11/27/21 22:40 70 20 102/59 L 98 11/27/21 22:35 71 20 100/60 99 11/27/21 22:30 71 20 103/62 98 11/27/21 22:25 71 20 102/60 98 11/27/21 22:20 71 20 102/61 98 11/27/21 22:15 71 20 103/62 98 11/27/21 22:11 70 20 103/61 98 11/27/21 22:05 72 20 106/61 98 11/27/21 22:01 72 11/27/21 22:00 72 20 97 Laboratory Results 11/28/21 11/28/21 11/28/21 Range/Units 05:37 05:15 05:15 WBC (4.8-10.8) K/uL RBC (4.7-6.1) M/uL Hgb (14.0-18.0) g/dL POC Hgb 14.6 (14.0-18.0) g/dl Hct (42-52) % POC Hct 43 (42-52) % MCV (80-100) fL MCH (25-34) pg MCHC (32-36) g/dL RDW Std Deviation (36.4-46.3) fL RDW Coeff of Fili (11.5-14.5) % Plt Count (130-400) K/uL MPV (7.4-10.4) fL Immature Gran % (Auto) % Neut % (Auto) % Lymph % (Auto) % [place] % (Auto) % Eos % (Auto) % Baso % (Auto) % Neut # (Auto) (1.4-6.5) K/uL Lymph # (Auto) (1.2-3.4) K/uL [place] # (Auto) (0.11-0.59) K/uL Eos # (Auto) (0-0.5) K/uL Baso # (Auto) (0-0.2) K/uL Immature Gran # (Auto) (0.00-0.02) K/uL PT (9.0-12.0) Seconds INR (0.9-1.1) APTT (21.0-31.0) Seconds PTT Ratio Sample Site R Radial POC pH 7.37 (7.35-7.45) POC pCO2 36 (35-46) mmHg POC pO2 122 H (80-95) mmHg POC HCO3 21 (19-24) julio/L POC Base Excess -4.0 (-9-1.8) julio/L ABG pH (7.35-7.45) ABG pH (Temp Correct) 7.378 (7.35-7.45) ABG pCO2 (35-46) mmHg ABG pCO2 (Temp Corrct 35 (35-46) mmHg ABG pO2 (80-95) mmHg POC ABG pO2 at Pt Temp 119 ABG HCO3 (19-24) mmol/L POC ABG O2 Sat 99.0 H (90-95) % ABG O2 Saturation (90-95) % ABG Base Excess (-9-1.8) mEq/L Jovany Test Pass (Pos) Barometric Pressure mm/Hg Oxygen Given O2 Delivery Device Ventilator POC O2 Rate 20 Minute Ventilation 9.2 POC FiO2 40 % Tidal Volume 460 PEEP 5 POC Sodium 145 H (135-144) mmol/L Sodium 143 (136-145) mmol/L POC Potassium 3.5 (3.3-5.0) mmol/L Potassium 3.5 (3.5-5.1) mmol/L POC Chloride (101-112) mmol/L Chloride 111 H (98-107) mmol/L Carbon Dioxide 21 (21-32) mmol/L POC Total CO2 22 L (24-31) mmol/L Anion Gap 11 (3-11) POC Anion Gap (16-25) mmol/L POC BUN (7-18) mg/dl BUN 6 (6-23) mg/dl Creatinine 0.65 D (0.6-1.4) mg/dl POC Creatinine (0.6-1.3) mg/dl Est Cr Clr Drug Dosing 236.3 Est GFR ( Amer) > 150.0 ml/min Est GFR (Non-Af Amer) 131.5 ml/min BUN/Creatinine Ratio 9.2 L (10-20) Glucose 118 H (70-99(Fasting)) mg/dl POC Glucose (70-99) mg/dl POC Glucose (other) (70-99) mg/dl Lactate (0.4-2.0) mmol/L Calcium 8.2 L (8.5-10.1) mg/dl POC Ioniz Calcium Lorne (1.12-1.32) mmol/l Phosphorus 3.1 (2.5-4.9) mg/dl Magnesium 1.9 (1.7-2.4) mg/dl Total Bilirubin 0.2 (0.2-1.0) mg/dl Direct Bilirubin 0.0 (0-0.2) mg/dl AST 21 (13-39) U/L ALT 30 (7-52) U/L Alkaline Phosphatase 75 (34-104) U/L Troponin I High Sens (0-20) pg/ml Total Protein 6.6 (6.0-8.3) gm/dl Albumin 4.1 (3.4-5.0) gm/dl Globulin (2.5-4.0) gm/dl Albumin/Globulin Ratio (0.9-2) Lipase (11-82) U/L Procalcitonin (0-0.5) ng/ml TSH (0.300-4.500) uIu/ml Urine Color Urine Appearance (Clear) Urine pH (4.5-7.5) Ur Specific [place] (1.000-1.030) Urine Protein (Negative) Urine Glucose (UA) (Negative) Urine Ketones (Negative) Urine Blood (Negative) Urine Nitrite (Negative) Urine Bilirubin (Negative) Urine Urobilinogen (Negative) Ur Leukocyte Esterase (Negative) Urine WBC (Auto) (0-5) /hpf Urine RBC (Auto) (0-4) /hpf U Hyaline Cast (Auto) (0-5) /lpf U Epithel Cells (Auto) (0-5) /lpf Urine Bacteria (Auto) (Negative) Nasal Screen MRSA (PCR) (Negative) Salicylates (3.0-30) mg/dl Urine Opiates Screen (Neg) Ur Methadone, Qual (Neg) Acetaminophen < 3 L (10-30) ug/ml Urine Barbiturates (Neg) Ur Phencyclidine (PCP) (Neg) U Amphetamin/Meth Scrn (Neg) MDMA (Ecstasy) Screen (Neg) U OH-Alprazolam Confrm U Benzodiazepines Scrn (Neg) 7-Amino Clonazepam Ur Nordiazepam Confirm U OH-ethylflurazepam U Lorazepam Cnf GC/MS U Oxazepam Confm GC/MS Ur Temazepam Confirm U OH-Triazolam Confirm U OH-Midazolam Confirm Ur Cocaine Metabolite (Neg) U Marijuana (THC) Screen (Neg) Drug Screen Comment Ethyl Alcohol mg/dL (<10.0) mg/dl SARS-CoV-2 (PCR) (Negative) Influenza Type A (PCR) (Neg) Influenza Type B (PCR) (Neg) RSV (RT-PCR) (Neg) 11/28/21 11/28/21 11/28/21 Range/Units 05:15 05:15 01:06 WBC 11.68 H (4.8-10.8) K/uL RBC 5.03 (4.7-6.1) M/uL Hgb 15.7 (14.0-18.0) g/dL POC Hgb (14.0-18.0) g/dl Hct 44.1 (42-52) % POC Hct (42-52) % MCV 87.7 (80-100) fL MCH 31.2 (25-34) pg MCHC 35.6 (32-36) g/dL RDW Std Deviation 42.1 (36.4-46.3) fL RDW Coeff of Fili 13.0 (11.5-14.5) % Plt Count 243 (130-400) K/uL MPV 10.5 H (7.4-10.4) fL Immature Gran % (Auto) 0.3 % Neut % (Auto) 81.1 % Lymph % (Auto) 13.8 % [place] % (Auto) 4.5 % Eos % (Auto) 0.2 % Baso % (Auto) 0.1 % Neut # (Auto) 9.47 H (1.4-6.5) K/uL Lymph # (Auto) 1.61 (1.2-3.4) K/uL [place] # (Auto) 0.53 (0.11-0.59) K/uL Eos # (Auto) 0.02 (0-0.5) K/uL Baso # (Auto) 0.01 (0-0.2) K/uL Immature Gran # (Auto) 0.04 H (0.00-0.02) K/uL PT 10.4 (9.0-12.0) Seconds INR 1.0 (0.9-1.1) APTT (21.0-31.0) Seconds PTT Ratio Sample Site POC pH (7.35-7.45) POC pCO2 (35-46) mmHg POC pO2 (80-95) mmHg POC HCO3 (19-24) julio/L POC Base Excess (-9-1.8) julio/L ABG pH 7.40 (7.35-7.45) ABG pH (Temp Correct) (7.35-7.45) ABG pCO2 33 L (35-46) mmHg ABG pCO2 (Temp Corrct (35-46) mmHg ABG pO2 183 H (80-95) mmHg POC ABG pO2 at Pt Temp ABG HCO3 20 (19-24) mmol/L POC ABG O2 Sat (90-95) % ABG O2 Saturation 99.4 H (90-95) % ABG Base Excess -4.0 (-9-1.8) mEq/L Jovany Test Pos (Pos) Barometric Pressure 725.6 mm/Hg Oxygen Given ROOM AIR O2 Delivery Device POC O2 Rate Minute Ventilation POC FiO2 % Tidal Volume PEEP POC Sodium (135-144) mmol/L Sodium (136-145) mmol/L POC Potassium (3.3-5.0) mmol/L Potassium (3.5-5.1) mmol/L POC Chloride (101-112) mmol/L Chloride (98-107) mmol/L Carbon Dioxide (21-32) mmol/L POC Total CO2 (24-31) mmol/L Anion Gap (3-11) POC Anion Gap (16-25) mmol/L POC BUN (7-18) mg/dl BUN (6-23) mg/dl Creatinine (0.6-1.4) mg/dl POC Creatinine (0.6-1.3) mg/dl Est Cr Clr Drug Dosing Est GFR ( Amer) ml/min Est GFR (Non-Af Amer) ml/min BUN/Creatinine Ratio (10-20) Glucose (70-99(Fasting)) mg/dl POC Glucose (70-99) mg/dl POC Glucose (other) (70-99) mg/dl Lactate (0.4-2.0) mmol/L Calcium (8.5-10.1) mg/dl POC Ioniz Calcium [place] (1.12-1.32) mmol/l Phosphorus (2.5-4.9) mg/dl Magnesium (1.7-2.4) mg/dl Total Bilirubin (0.2-1.0) mg/dl Direct Bilirubin (0-0.2) mg/dl AST (13-39) U/L ALT (7-52) U/L Alkaline Phosphatase (34-104) U/L Troponin I High Sens (0-20) pg/ml Total Protein (6.0-8.3) gm/dl Albumin (3.4-5.0) gm/dl Globulin (2.5-4.0) gm/dl Albumin/Globulin Ratio (0.9-2) Lipase (11-82) U/L Procalcitonin (0-0.5) ng/ml TSH (0.300-4.500) uIu/ml Urine Color Urine Appearance (Clear) Urine pH (4.5-7.5) Ur Specific [place] (1.000-1.030) Urine Protein (Negative) Urine Glucose (UA) (Negative) Urine Ketones (Negative) Urine Blood (Negative) Urine Nitrite (Negative) Urine Bilirubin (Negative) Urine Urobilinogen (Negative) Ur Leukocyte Esterase (Negative) Urine WBC (Auto) (0-5) /hpf Urine RBC (Auto) (0-4) /hpf U Hyaline Cast (Auto) (0-5) /lpf U Epithel Cells (Auto) (0-5) /lpf Urine Bacteria (Auto) (Negative) Nasal Screen MRSA (PCR) (Negative) Salicylates (3.0-30) mg/dl Urine Opiates Screen (Neg) Ur Methadone, Qual (Neg) Acetaminophen (10-30) ug/ml Urine Barbiturates (Neg) Ur Phencyclidine (PCP) (Neg) U Amphetamin/Meth Scrn (Neg) MDMA (Ecstasy) Screen (Neg) U OH-Alprazolam Confrm U Benzodiazepines Scrn (Neg) 7-Amino Clonazepam Ur Nordiazepam Confirm U OH-ethylflurazepam U Lorazepam Cnf GC/MS U Oxazepam Confm GC/MS Ur Temazepam Confirm U OH-Triazolam Confirm U OH-Midazolam Confirm Ur Cocaine Metabolite (Neg) U Marijuana (THC) Screen (Neg) Drug Screen Comment Ethyl Alcohol mg/dL (<10.0) mg/dl SARS-CoV-2 (PCR) (Negative) Influenza Type A (PCR) (Neg) Influenza Type B (PCR) (Neg) RSV (RT-PCR) (Neg) 11/28/21 11/27/21 11/27/21 Range/Units 00:15 22:11 21:27 WBC (4.8-10.8) K/uL RBC (4.7-6.1) M/uL Hgb (14.0-18.0) g/dL POC Hgb (14.0-18.0) g/dl Hct (42-52) % POC Hct (42-52) % MCV (80-100) fL MCH (25-34) pg MCHC (32-36) g/dL RDW Std Deviation (36.4-46.3) fL RDW Coeff of Fili (11.5-14.5) % Plt Count (130-400) K/uL MPV (7.4-10.4) fL Immature Gran % (Auto) % Neut % (Auto) % Lymph % (Auto) % [place] % (Auto) % Eos % (Auto) % Baso % (Auto) % Neut # (Auto) (1.4-6.5) K/uL Lymph # (Auto) (1.2-3.4) K/uL [place] # (Auto) (0.11-0.59) K/uL Eos # (Auto) (0-0.5) K/uL Baso # (Auto) (0-0.2) K/uL Immature Gran # (Auto) (0.00-0.02) K/uL PT (9.0-12.0) Seconds INR (0.9-1.1) APTT (21.0-31.0) Seconds PTT Ratio Sample Site POC pH (7.35-7.45) POC pCO2 (35-46) mmHg POC pO2 (80-95) mmHg POC HCO3 (19-24) julio/L POC Base Excess (-9-1.8) julio/L ABG pH (7.35-7.45) ABG pH (Temp Correct) (7.35-7.45) ABG pCO2 (35-46) mmHg ABG pCO2 (Temp Corrct (35-46) mmHg ABG pO2 (80-95) mmHg POC ABG pO2 at Pt Temp ABG HCO3 (19-24) mmol/L POC ABG O2 Sat (90-95) % ABG O2 Saturation (90-95) % ABG Base Excess (-9-1.8) mEq/L Jovany Test (Pos) Barometric Pressure mm/Hg Oxygen Given O2 Delivery Device POC O2 Rate Minute Ventilation POC FiO2 % Tidal Volume PEEP POC Sodium (135-144) mmol/L Sodium (136-145) mmol/L POC Potassium (3.3-5.0) mmol/L Potassium (3.5-5.1) mmol/L POC Chloride (101-112) mmol/L Chloride (98-107) mmol/L Carbon Dioxide (21-32) mmol/L POC Total CO2 (24-31) mmol/L Anion Gap (3-11) POC Anion Gap (16-25) mmol/L POC BUN (7-18) mg/dl BUN (6-23) mg/dl Creatinine (0.6-1.4) mg/dl POC Creatinine (0.6-1.3) mg/dl Est Cr Clr Drug Dosing Est GFR ( Amer) ml/min Est GFR (Non-Af Amer) ml/min BUN/Creatinine Ratio (10-20) Glucose (70-99(Fasting)) mg/dl POC Glucose (70-99) mg/dl POC Glucose (other) (70-99) mg/dl Lactate 1.8 (0.4-2.0) mmol/L Calcium (8.5-10.1) mg/dl POC Ioniz Calcium [place]orne (1.12-1.32) mmol/l Phosphorus (2.5-4.9) mg/dl Magnesium (1.7-2.4) mg/dl Total Bilirubin (0.2-1.0) mg/dl Direct Bilirubin (0-0.2) mg/dl AST (13-39) U/L ALT (7-52) U/L Alkaline Phosphatase (34-104) U/L Troponin I High Sens (0-20) pg/ml Total Protein (6.0-8.3) gm/dl Albumin (3.4-5.0) gm/dl Globulin (2.5-4.0) gm/dl Albumin/Globulin Ratio (0.9-2) Lipase (11-82) U/L Procalcitonin (0-0.5) ng/ml TSH (0.300-4.500) uIu/ml Urine Color Urine Appearance (Clear) Urine pH (4.5-7.5) Ur Specific [place] (1.000-1.030) Urine Protein (Negative) Urine Glucose (UA) (Negative) Urine Ketones (Negative) Urine Blood (Negative) Urine Nitrite (Negative) Urine Bilirubin (Negative) Urine Urobilinogen (Negative) Ur Leukocyte Esterase (Negative) Urine WBC (Auto) (0-5) /hpf Urine RBC (Auto) (0-4) /hpf U Hyaline Cast (Auto) (0-5) /lpf U Epithel Cells (Auto) (0-5) /lpf Urine Bacteria (Auto) (Negative) Nasal Screen MRSA (PCR) Negative (Negative) Salicylates (3.0-30) mg/dl Urine Opiates Screen (Neg) Ur Methadone, Qual (Neg) Acetaminophen (10-30) ug/ml Urine Barbiturates (Neg) Ur Phencyclidine (PCP) (Neg) U Amphetamin/Meth Scrn (Neg) MDMA (Ecstasy) Screen (Neg) U OH-Alprazolam Confrm U Benzodiazepines Scrn (Neg) 7-Amino Clonazepam Ur Nordiazepam Confirm U OH-ethylflurazepam U Lorazepam Cnf GC/MS U Oxazepam Confm GC/MS Ur Temazepam Confirm U OH-Triazolam Confirm U OH-Midazolam Confirm Ur Cocaine Metabolite (Neg) U Marijuana (THC) Screen (Neg) Drug Screen Comment Ethyl Alcohol mg/dL (<10.0) mg/dl SARS-CoV-2 (PCR) POSITIVE A* (Negative) Influenza Type A (PCR) Negative (Neg) Influenza Type B (PCR) Negative (Neg) RSV (RT-PCR) Negative (Neg) 11/27/21 11/27/21 11/27/21 Range/Units 20:53 20:50 20:25 WBC (4.8-10.8) K/uL RBC (4.7-6.1) M/uL Hgb (14.0-18.0) g/dL POC Hgb 14.6 (14.0-18.0) g/dl Hct (42-52) % POC Hct 43 (42-52) % MCV (80-100) fL MCH (25-34) pg MCHC (32-36) g/dL RDW Std Deviation (36.4-46.3) fL RDW Coeff of Fili (11.5-14.5) % Plt Count (130-400) K/uL MPV (7.4-10.4) fL Immature Gran % (Auto) % Neut % (Auto) % Lymph % (Auto) % [place] % (Auto) % Eos % (Auto) % Baso % (Auto) % Neut # (Auto) (1.4-6.5) K/uL Lymph # (Auto) (1.2-3.4) K/uL [place] # (Auto) (0.11-0.59) K/uL Eos # (Auto) (0-0.5) K/uL Baso # (Auto) (0-0.2) K/uL Immature Gran # (Auto) (0.00-0.02) K/uL PT (9.0-12.0) Seconds INR (0.9-1.1) APTT (21.0-31.0) Seconds PTT Ratio Sample Site POC pH 7.26 L (7.35-7.45) POC pCO2 47 H (35-46) mmHg POC pO2 74 L (80-95) mmHg POC HCO3 21 (19-24) julio/L POC Base Excess -6.0 (-9-1.8) julio/L ABG pH (7.35-7.45) ABG pH (Temp Correct) (7.35-7.45) ABG pCO2 (35-46) mmHg ABG pCO2 (Temp Corrct (35-46) mmHg ABG pO2 (80-95) mmHg POC ABG pO2 at Pt Temp ABG HCO3 (19-24) mmol/L POC ABG O2 Sat 92.0 (90-95) % ABG O2 Saturation (90-95) % ABG Base Excess (-9-1.8) mEq/L Jovany Test (Pos) Barometric Pressure mm/Hg Oxygen Given O2 Delivery Device POC O2 Rate Minute Ventilation POC FiO2 % Tidal Volume PEEP POC Sodium 141 (135-144) mmol/L Sodium (136-145) mmol/L POC Potassium 3.3 (3.3-5.0) mmol/L Potassium (3.5-5.1) mmol/L POC Chloride (101-112) mmol/L Chloride (98-107) mmol/L Carbon Dioxide (21-32) mmol/L POC Total CO2 23 L (24-31) mmol/L Anion Gap (3-11) POC Anion Gap (16-25) mmol/L POC BUN (7-18) mg/dl BUN (6-23) mg/dl Creatinine (0.6-1.4) mg/dl POC Creatinine (0.6-1.3) mg/dl Est Cr Clr Drug Dosing Est GFR ( Amer) ml/min Est GFR (Non-Af Amer) ml/min BUN/Creatinine Ratio (10-20) Glucose (70-99(Fasting)) mg/dl POC Glucose (70-99) mg/dl POC Glucose (other) (70-99) mg/dl Lactate 2.6 H* (0.4-2.0) mmol/L Calcium (8.5-10.1) mg/dl POC Ioniz Calcium [place] (1.12-1.32) mmol/l Phosphorus (2.5-4.9) mg/dl Magnesium (1.7-2.4) mg/dl Total Bilirubin (0.2-1.0) mg/dl Direct Bilirubin (0-0.2) mg/dl AST (13-39) U/L ALT (7-52) U/L Alkaline Phosphatase (34-104) U/L Troponin I High Sens (0-20) pg/ml Total Protein (6.0-8.3) gm/dl Albumin (3.4-5.0) gm/dl Globulin (2.5-4.0) gm/dl Albumin/Globulin Ratio (0.9-2) Lipase (11-82) U/L Procalcitonin (0-0.5) ng/ml TSH (0.300-4.500) uIu/ml Urine Color Urine Appearance (Clear) Urine pH (4.5-7.5) Ur Specific [place] (1.000-1.030) Urine Protein (Negative) Urine Glucose (UA) (Negative) Urine Ketones (Negative) Urine Blood (Negative) Urine Nitrite (Negative) Urine Bilirubin (Negative) Urine Urobilinogen (Negative) Ur Leukocyte Esterase (Negative) Urine WBC (Auto) (0-5) /hpf Urine RBC (Auto) (0-4) /hpf U Hyaline Cast (Auto) (0-5) /lpf U Epithel Cells (Auto) (0-5) /lpf Urine Bacteria (Auto) (Negative) Nasal Screen MRSA (PCR) (Negative) Salicylates < 3.0 L (3.0-30) mg/dl Urine Opiates Screen (Neg) Ur Methadone, Qual (Neg) Acetaminophen < 3 L (10-30) ug/ml Urine Barbiturates (Neg) Ur Phencyclidine (PCP) (Neg) U Amphetamin/Meth Scrn (Neg) MDMA (Ecstasy) Screen (Neg) U OH-Alprazolam Confrm U Benzodiazepines Scrn (Neg) 7-Amino Clonazepam Ur Nordiazepam Confirm U OH-ethylflurazepam U Lorazepam Cnf GC/MS U Oxazepam Confm GC/MS Ur Temazepam Confirm U OH-Triazolam Confirm U OH-Midazolam Confirm Ur Cocaine Metabolite (Neg) U Marijuana (THC) Screen (Neg) Drug Screen Comment Ethyl Alcohol mg/dL (<10.0) mg/dl SARS-CoV-2 (PCR) (Negative) Influenza Type A (PCR) (Neg) Influenza Type B (PCR) (Neg) RSV (RT-PCR) (Neg) 11/27/21 11/27/21 11/27/21 Range/Units 20:21 20:17 20:13 WBC (4.8-10.8) K/uL RBC (4.7-6.1) M/uL Hgb (14.0-18.0) g/dL POC Hgb 15.6 (14.0-18.0) g/dl Hct (42-52) % POC Hct 46 (42-52) % MCV (80-100) fL MCH (25-34) pg MCHC (32-36) g/dL RDW Std Deviation (36.4-46.3) fL RDW Coeff of Fili (11.5-14.5) % Plt Count (130-400) K/uL MPV (7.4-10.4) fL Immature Gran % (Auto) % Neut % (Auto) % Lymph % (Auto) % [place] % (Auto) % Eos % (Auto) % Baso % (Auto) % Neut # (Auto) (1.4-6.5) K/uL Lymph # (Auto) (1.2-3.4) K/uL [place] # (Auto) (0.11-0.59) K/uL Eos # (Auto) (0-0.5) K/uL Baso # (Auto) (0-0.2) K/uL Immature Gran # (Auto) (0.00-0.02) K/uL PT (9.0-12.0) Seconds INR (0.9-1.1) APTT (21.0-31.0) Seconds PTT Ratio Sample Site POC pH (7.35-7.45) POC pCO2 (35-46) mmHg POC pO2 (80-95) mmHg POC HCO3 (19-24) julio/L POC Base Excess (-9-1.8) julio/L ABG pH (7.35-7.45) ABG pH (Temp Correct) (7.35-7.45) ABG pCO2 (35-46) mmHg ABG pCO2 (Temp Corrct (35-46) mmHg ABG pO2 (80-95) mmHg POC ABG pO2 at Pt Temp ABG HCO3 (19-24) mmol/L POC ABG O2 Sat (90-95) % ABG O2 Saturation (90-95) % ABG Base Excess (-9-1.8) mEq/L Jovany Test (Pos) Barometric Pressure mm/Hg Oxygen Given O2 Delivery Device POC O2 Rate Minute Ventilation POC FiO2 % Tidal Volume PEEP POC Sodium 142 (135-144) mmol/L Sodium (136-145) mmol/L POC Potassium 3.5 (3.3-5.0) mmol/L Potassium (3.5-5.1) mmol/L POC Chloride 105 (101-112) mmol/L Chloride (98-107) mmol/L Carbon Dioxide (21-32) mmol/L POC Total CO2 27 (24-31) mmol/L Anion Gap (3-11) POC Anion Gap 15.0 L (16-25) mmol/L POC BUN 5 L (7-18) mg/dl BUN (6-23) mg/dl Creatinine (0.6-1.4) mg/dl POC Creatinine 1.3 (0.6-1.3) mg/dl Est Cr Clr Drug Dosing Est GFR ( Amer) ml/min Est GFR (Non-Af Amer) ml/min BUN/Creatinine Ratio (10-20) Glucose (70-99(Fasting)) mg/dl POC Glucose 129 H (70-99) mg/dl POC Glucose (other) 129 H (70-99) mg/dl Lactate (0.4-2.0) mmol/L Calcium (8.5-10.1) mg/dl POC Ioniz Calcium [place] 1.09 L (1.12-1.32) mmol/l Phosphorus (2.5-4.9) mg/dl Magnesium (1.7-2.4) mg/dl Total Bilirubin (0.2-1.0) mg/dl Direct Bilirubin (0-0.2) mg/dl AST (13-39) U/L ALT (7-52) U/L Alkaline Phosphatase (34-104) U/L Troponin I High Sens (0-20) pg/ml Total Protein (6.0-8.3) gm/dl Albumin (3.4-5.0) gm/dl Globulin (2.5-4.0) gm/dl Albumin/Globulin Ratio (0.9-2) Lipase (11-82) U/L Procalcitonin (0-0.5) ng/ml TSH (0.300-4.500) uIu/ml Urine Color Urine Appearance (Clear) Urine pH (4.5-7.5) Ur Specific [place] (1.000-1.030) Urine Protein (Negative) Urine Glucose (UA) (Negative) Urine Ketones (Negative) Urine Blood (Negative) Urine Nitrite (Negative) Urine Bilirubin (Negative) Urine Urobilinogen (Negative) Ur Leukocyte Esterase (Negative) Urine WBC (Auto) (0-5) /hpf Urine RBC (Auto) (0-4) /hpf U Hyaline Cast (Auto) (0-5) /lpf U Epithel Cells (Auto) (0-5) /lpf Urine Bacteria (Auto) (Negative) Nasal Screen MRSA (PCR) (Negative) Salicylates (3.0-30) mg/dl Urine Opiates Screen (Neg) Ur Methadone, Qual (Neg) Acetaminophen (10-30) ug/ml Urine Barbiturates (Neg) Ur Phencyclidine (PCP) (Neg) U Amphetamin/Meth Scrn (Neg) MDMA (Ecstasy) Screen (Neg) U OH-Alprazolam Confrm Pending U Benzodiazepines Scrn (Neg) 7-Amino Clonazepam Pending Ur Nordiazepam Confirm Pending U OH-ethylflurazepam Pending U Lorazepam Cnf GC/MS Pending U Oxazepam Confm GC/MS Pending Ur Temazepam Confirm Pending U OH-Triazolam Confirm Pending U [place]-Midazolam Confirm Pending Ur Cocaine Metabolite (Neg) U Marijuana (THC) Screen (Neg) Drug Screen Comment Pending Ethyl Alcohol mg/dL (<10.0) mg/dl SARS-CoV-2 (PCR) (Negative) Influenza Type A (PCR) (Neg) Influenza Type B (PCR) (Neg) RSV (RT-PCR) (Neg) 11/27/21 11/27/21 11/27/21 Range/Units 20:13 20:13 20:05 WBC (4.8-10.8) K/uL RBC (4.7-6.1) M/uL Hgb (14.0-18.0) g/dL POC Hgb (14.0-18.0) g/dl Hct (42-52) % POC Hct (42-52) % MCV (80-100) fL MCH (25-34) pg MCHC (32-36) g/dL RDW Std Deviation (36.4-46.3) fL RDW Coeff of Fili (11.5-14.5) % Plt Count (130-400) K/uL MPV (7.4-10.4) fL Immature Gran % (Auto) % Neut % (Auto) % Lymph % (Auto) % [place] % (Auto) % Eos % (Auto) % Baso % (Auto) % Neut # (Auto) (1.4-6.5) K/uL Lymph # (Auto) (1.2-3.4) K/uL [place] # (Auto) (0.11-0.59) K/uL Eos # (Auto) (0-0.5) K/uL Baso # (Auto) (0-0.2) K/uL Immature Gran # (Auto) (0.00-0.02) K/uL PT 10.3 (9.0-12.0) Seconds INR 1.0 (0.9-1.1) APTT 30.8 (21.0-31.0) Seconds PTT Ratio 1.1 Sample Site POC pH (7.35-7.45) POC pCO2 (35-46) mmHg POC pO2 (80-95) mmHg POC HCO3 (19-24) julio/L POC Base Excess (-9-1.8) julio/L ABG pH (7.35-7.45) ABG pH (Temp Correct) (7.35-7.45) ABG pCO2 (35-46) mmHg ABG pCO2 (Temp Corrct (35-46) mmHg ABG pO2 (80-95) mmHg POC ABG pO2 at Pt Temp ABG HCO3 (19-24) mmol/L POC ABG O2 Sat (90-95) % ABG O2 Saturation (90-95) % ABG Base Excess (-9-1.8) mEq/L Jovany Test (Pos) Barometric Pressure mm/Hg Oxygen Given O2 Delivery Device POC O2 Rate Minute Ventilation POC FiO2 % Tidal Volume PEEP POC Sodium (135-144) mmol/L Sodium (136-145) mmol/L POC Potassium (3.3-5.0) mmol/L Potassium (3.5-5.1) mmol/L POC Chloride (101-112) mmol/L Chloride (98-107) mmol/L Carbon Dioxide (21-32) mmol/L POC Total CO2 (24-31) mmol/L Anion Gap (3-11) POC Anion Gap (16-25) mmol/L POC BUN (7-18) mg/dl BUN (6-23) mg/dl Creatinine (0.6-1.4) mg/dl POC Creatinine (0.6-1.3) mg/dl Est Cr Clr Drug Dosing Est GFR ( Amer) ml/min Est GFR (Non-Af Amer) ml/min BUN/Creatinine Ratio (10-20) Glucose (70-99(Fasting)) mg/dl POC Glucose (70-99) mg/dl POC Glucose (other) (70-99) mg/dl Lactate (0.4-2.0) mmol/L Calcium (8.5-10.1) mg/dl POC Ioniz Calcium [place]orne (1.12-1.32) mmol/l Phosphorus (2.5-4.9) mg/dl Magnesium (1.7-2.4) mg/dl Total Bilirubin (0.2-1.0) mg/dl Direct Bilirubin (0-0.2) mg/dl AST (13-39) U/L ALT (7-52) U/L Alkaline Phosphatase (34-104) U/L Troponin I High Sens (0-20) pg/ml Total Protein (6.0-8.3) gm/dl Albumin (3.4-5.0) gm/dl Globulin (2.5-4.0) gm/dl Albumin/Globulin Ratio (0.9-2) Lipase (11-82) U/L Procalcitonin (0-0.5) ng/ml TSH (0.300-4.500) uIu/ml Urine Color Yellow Urine Appearance Clear (Clear) Urine pH 5.0 (4.5-7.5) Ur Specific [place] 1.006 (1.000-1.030) Urine Protein 2+ H (Negative) Urine Glucose (UA) Negative (Negative) Urine Ketones Negative (Negative) Urine Blood Negative (Negative) Urine Nitrite Negative (Negative) Urine Bilirubin Negative (Negative) Urine Urobilinogen Negative (Negative) Ur Leukocyte Esterase Negative (Negative) Urine WBC (Auto) 1-5 (0-5) /hpf Urine RBC (Auto) 0-4 (0-4) /hpf U Hyaline Cast (Auto) 5-10 H (0-5) /lpf U Epithel Cells (Auto) 10-20 H (0-5) /lpf Urine Bacteria (Auto) Negative (Negative) Nasal Screen MRSA (PCR) (Negative) Salicylates (3.0-30) mg/dl Urine Opiates Screen Neg (Neg) Ur Methadone, Qual Neg (Neg) Acetaminophen (10-30) ug/ml Urine Barbiturates Neg (Neg) Ur Phencyclidine (PCP) Neg (Neg) U Amphetamin/Meth Scrn Neg (Neg) MDMA (Ecstasy) Screen Neg (Neg) U OH-Alprazolam Confrm U Benzodiazepines Scrn Pos H (Neg) 7-Amino Clonazepam Ur Nordiazepam Confirm U OH-ethylflurazepam U Lorazepam Cnf GC/MS U Oxazepam Confm GC/MS Ur Temazepam Confirm U OH-Triazolam Confirm U OH-Midazolam Confirm Ur Cocaine Metabolite Neg (Neg) U Marijuana (THC) Screen Neg (Neg) Drug Screen Comment Ethyl Alcohol mg/dL (<10.0) mg/dl SARS-CoV-2 (PCR) (Negative) Influenza Type A (PCR) (Neg) Influenza Type B (PCR) (Neg) RSV (RT-PCR) (Neg) 11/27/21 11/27/21 11/27/21 Range/Units 20:05 20:05 20:05 WBC (4.8-10.8) K/uL RBC (4.7-6.1) M/uL Hgb (14.0-18.0) g/dL POC Hgb (14.0-18.0) g/dl Hct (42-52) % POC Hct (42-52) % MCV (80-100) fL MCH (25-34) pg MCHC (32-36) g/dL RDW Std Deviation (36.4-46.3) fL RDW Coeff of Fili (11.5-14.5) % Plt Count (130-400) K/uL MPV (7.4-10.4) fL Immature Gran % (Auto) % Neut % (Auto) % Lymph % (Auto) % [place] % (Auto) % Eos % (Auto) % Baso % (Auto) % Neut # (Auto) (1.4-6.5) K/uL Lymph # (Auto) (1.2-3.4) K/uL [place] # (Auto) (0.11-0.59) K/uL Eos # (Auto) (0-0.5) K/uL Baso # (Auto) (0-0.2) K/uL Immature Gran # (Auto) (0.00-0.02) K/uL PT (9.0-12.0) Seconds INR (0.9-1.1) APTT (21.0-31.0) Seconds PTT Ratio Sample Site POC pH (7.35-7.45) POC pCO2 (35-46) mmHg POC pO2 (80-95) mmHg POC HCO3 (19-24) julio/L POC Base Excess (-9-1.8) julio/L ABG pH (7.35-7.45) ABG pH (Temp Correct) (7.35-7.45) ABG pCO2 (35-46) mmHg ABG pCO2 (Temp Corrct (35-46) mmHg ABG pO2 (80-95) mmHg POC ABG pO2 at Pt Temp ABG HCO3 (19-24) mmol/L POC ABG O2 Sat (90-95) % ABG O2 Saturation (90-95) % ABG Base Excess (-9-1.8) mEq/L Jovany Test (Pos) Barometric Pressure mm/Hg Oxygen Given O2 Delivery Device POC O2 Rate Minute Ventilation POC FiO2 % Tidal Volume PEEP POC Sodium (135-144) mmol/L Sodium 140 (136-145) mmol/L POC Potassium (3.3-5.0) mmol/L Potassium 3.4 L (3.5-5.1) mmol/L POC Chloride (101-112) mmol/L Chloride 106 (98-107) mmol/L Carbon Dioxide 26 (21-32) mmol/L POC Total CO2 (24-31) mmol/L Anion Gap 8 (3-11) POC Anion Gap (16-25) mmol/L POC BUN (7-18) mg/dl BUN 6 (6-23) mg/dl Creatinine 0.97 (0.6-1.4) mg/dl POC Creatinine (0.6-1.3) mg/dl Est Cr Clr Drug Dosing Not Reportable Est GFR ( Amer) 121.8 ml/min Est GFR (Non-Af Amer) 105.1 ml/min BUN/Creatinine Ratio 6.2 L (10-20) Glucose 125 H (70-99(Fasting)) mg/dl POC Glucose (70-99) mg/dl POC Glucose (other) (70-99) mg/dl Lactate (0.4-2.0) mmol/L Calcium 8.3 L (8.5-10.1) mg/dl POC Ioniz Calcium [place]orne (1.12-1.32) mmol/l Phosphorus (2.5-4.9) mg/dl Magnesium (1.7-2.4) mg/dl Total Bilirubin 0.2 (0.2-1.0) mg/dl Direct Bilirubin (0-0.2) mg/dl AST 20 (13-39) U/L ALT 29 (7-52) U/L Alkaline Phosphatase 77 (34-104) U/L Troponin I High Sens 7.9 (0-20) pg/ml Total Protein 6.9 (6.0-8.3) gm/dl Albumin 4.3 (3.4-5.0) gm/dl Globulin 2.6 (2.5-4.0) gm/dl Albumin/Globulin Ratio 1.7 (0.9-2) Lipase 31 (11-82) U/L Procalcitonin (0-0.5) ng/ml TSH 0.680 (0.300-4.500) uIu/ml Urine Color Urine Appearance (Clear) Urine pH (4.5-7.5) Ur Specific [place] (1.000-1.030) Urine Protein (Negative) Urine Glucose (UA) (Negative) Urine Ketones (Negative) Urine Blood (Negative) Urine Nitrite (Negative) Urine Bilirubin (Negative) Urine Urobilinogen (Negative) Ur Leukocyte Esterase (Negative) Urine WBC (Auto) (0-5) /hpf Urine RBC (Auto) (0-4) /hpf U Hyaline Cast (Auto) (0-5) /lpf U Epithel Cells (Auto) (0-5) /lpf Urine Bacteria (Auto) (Negative) Nasal Screen MRSA (PCR) (Negative) Salicylates (3.0-30) mg/dl Urine Opiates Screen (Neg) Ur Methadone, Qual (Neg) Acetaminophen (10-30) ug/ml Urine Barbiturates (Neg) Ur Phencyclidine (PCP) (Neg) U Amphetamin/Meth Scrn (Neg) MDMA (Ecstasy) Screen (Neg) U OH-Alprazolam Confrm U Benzodiazepines Scrn (Neg) 7-Amino Clonazepam Ur Nordiazepam Confirm U OH-ethylflurazepam U Lorazepam Cnf GC/MS U Oxazepam Confm GC/MS Ur Temazepam Confirm U OH-Triazolam Confirm U OH-Midazolam Confirm Ur Cocaine Metabolite (Neg) U Marijuana (THC) Screen (Neg) Drug Screen Comment Ethyl Alcohol mg/dL 453.7 H (<10.0) mg/dl SARS-CoV-2 (PCR) (Negative) Influenza Type A (PCR) (Neg) Influenza Type B (PCR) (Neg) RSV (RT-PCR) (Neg) 11/27/21 11/27/21 Range/Units 20:05 20:05 WBC 6.53 (4.8-10.8) K/uL RBC 5.11 (4.7-6.1) M/uL Hgb 15.4 (14.0-18.0) g/dL POC Hgb (14.0-18.0) g/dl Hct 44.7 (42-52) % POC Hct (42-52) % MCV 87.5 (80-100) fL MCH 30.1 (25-34) pg MCHC 34.5 (32-36) g/dL RDW Std Deviation 41.7 (36.4-46.3) fL RDW Coeff of Fili 12.9 (11.5-14.5) % Plt Count 200 (130-400) K/uL MPV 10.3 (7.4-10.4) fL Immature Gran % (Auto) 0.3 % Neut % (Auto) 72.1 % Lymph % (Auto) 19.8 % [place] % (Auto) 5.8 % Eos % (Auto) 2.0 % Baso % (Auto) 0.0 % Neut # (Auto) 4.71 (1.4-6.5) K/uL Lymph # (Auto) 1.29 (1.2-3.4) K/uL [place] # (Auto) 0.38 (0.11-0.59) K/uL Eos # (Auto) 0.13 (0-0.5) K/uL Baso # (Auto) 0.00 (0-0.2) K/uL Immature Gran # (Auto) 0.02 (0.00-0.02) K/uL PT (9.0-12.0) Seconds INR (0.9-1.1) APTT (21.0-31.0) Seconds PTT Ratio Sample Site POC pH (7.35-7.45) POC pCO2 (35-46) mmHg POC pO2 (80-95) mmHg POC HCO3 (19-24) julio/L POC Base Excess (-9-1.8) julio/L ABG pH (7.35-7.45) ABG pH (Temp Correct) (7.35-7.45) ABG pCO2 (35-46) mmHg ABG pCO2 (Temp Corrct (35-46) mmHg ABG pO2 (80-95) mmHg POC ABG pO2 at Pt Temp ABG HCO3 (19-24) mmol/L POC ABG O2 Sat (90-95) % ABG O2 Saturation (90-95) % ABG Base Excess (-9-1.8) mEq/L Jovany Test (Pos) Barometric Pressure mm/Hg Oxygen Given O2 Delivery Device POC O2 Rate Minute Ventilation POC FiO2 % Tidal Volume PEEP POC Sodium (135-144) mmol/L Sodium (136-145) mmol/L POC Potassium (3.3-5.0) mmol/L Potassium (3.5-5.1) mmol/L POC Chloride (101-112) mmol/L Chloride (98-107) mmol/L Carbon Dioxide (21-32) mmol/L POC Total CO2 (24-31) mmol/L Anion Gap (3-11) POC Anion Gap (16-25) mmol/L POC BUN (7-18) mg/dl BUN (6-23) mg/dl Creatinine (0.6-1.4) mg/dl POC Creatinine (0.6-1.3) mg/dl Est Cr Clr Drug Dosing Est GFR ( Amer) ml/min Est GFR (Non-Af Amer) ml/min BUN/Creatinine Ratio (10-20) Glucose (70-99(Fasting)) mg/dl POC Glucose (70-99) mg/dl POC Glucose (other) (70-99) mg/dl Lactate (0.4-2.0) mmol/L Calcium (8.5-10.1) mg/dl POC Ioniz Calcium [place] (1.12-1.32) mmol/l Phosphorus (2.5-4.9) mg/dl Magnesium (1.7-2.4) mg/dl Total Bilirubin (0.2-1.0) mg/dl Direct Bilirubin (0-0.2) mg/dl AST (13-39) U/L ALT (7-52) U/L Alkaline Phosphatase (34-104) U/L Troponin I High Sens (0-20) pg/ml Total Protein (6.0-8.3) gm/dl Albumin (3.4-5.0) gm/dl Globulin (2.5-4.0) gm/dl Albumin/Globulin Ratio (0.9-2) Lipase (11-82) U/L Procalcitonin < 0.05 (0-0.5) ng/ml TSH (0.300-4.500) uIu/ml Urine Color Urine Appearance (Clear) Urine pH (4.5-7.5) Ur Specific [place] (1.000-1.030) Urine Protein (Negative) Urine Glucose (UA) (Negative) Urine Ketones (Negative) Urine Blood (Negative) Urine Nitrite (Negative) Urine Bilirubin (Negative) Urine Urobilinogen (Negative) Ur Leukocyte Esterase (Negative) Urine WBC (Auto) (0-5) /hpf Urine RBC (Auto) (0-4) /hpf U Hyaline Cast (Auto) (0-5) /lpf U Epithel Cells (Auto) (0-5) /lpf Urine Bacteria (Auto) (Negative) Nasal Screen MRSA (PCR) (Negative) Salicylates (3.0-30) mg/dl Urine Opiates Screen (Neg) Ur Methadone, Qual (Neg) Acetaminophen (10-30) ug/ml Urine Barbiturates (Neg) Ur Phencyclidine (PCP) (Neg) U Amphetamin/Meth Scrn (Neg) MDMA (Ecstasy) Screen (Neg) U OH-Alprazolam Confrm U Benzodiazepines Scrn (Neg) 7-Amino Clonazepam Ur Nordiazepam Confirm U OH-ethylflurazepam U Lorazepam Cnf GC/MS U Oxazepam Confm GC/MS Ur Temazepam Confirm U OH-Triazolam Confirm U OH-Midazolam Confirm Ur Cocaine Metabolite (Neg) U Marijuana (THC) Screen (Neg) Drug Screen Comment Ethyl Alcohol mg/dL (<10.0) mg/dl SARS-CoV-2 (PCR) (Negative) Influenza Type A (PCR) (Neg) Influenza Type B (PCR) (Neg) RSV (RT-PCR) (Neg) Medications Administered Current Inpatient Medications Fentanyl Citrate (Fentanyl Citrate 100 Mcg/2 Ml Vial) 50 mcg IV Q2H PRN PRN Reason: Moderate Pain (4,5,6) on NRS Stop: 12/12/21 00:23 Propofol (Diprivan) 1,000 mg in 100 mls @ 12.609 mls/hr IV .[id number] [facility]; Protocol Stop: 11/30/21 20:14 Last Titration: 11/28/21 07:00 Dose: 0 mcg/kg/min, 0 mls/hr Documented by: Sodium Chloride (Nss 1000ml) 1,000 mls @ 125 mls/hr IV .Q8H [facility]ARA Stop: 12/28/21 00:05 Last Admin: 11/28/21 00:48 Dose: 125 mls/hr Documented by: Ampicillin Sodium/Sulbactam Sodium 3,000 mg/ Sodium Chloride 108 mls @ 200 mls/hr IV Q6H [facility]; Protocol Stop: 12/05/21 00:00 Last Infusion: 11/28/21 06:33 Dose: Infused Documented by: Miscellaneous (Icu Protocol For Hyperglycemia) 1 ea N/A PRN PRN; Protocol PRN Reason: Hyperglycemia Protocol Stop: 11/30/21 00:05 Propofol (Propofol Bolus From Bag) 20 mg IV Q5M PRN PRN Reason: Sedation Stop: 11/30/21 20:06 Last Admin: 11/28/21 04:18 Dose: 20 mg Documented by:
[2021-11-28] MEDS ORDERED: LABETALOL HCL IV 5 MG/ML 20ML IV STA ×2 (11:02→16:50)
[2021-11-28] MEDS ORDERED: POTASSIUM CHLORIDE CRTAB 20 MEQ TABCR PO STA (16:56)
[2021-11-28] MEDS ORDERED: lisinopril 5 MG TAB PO SCH (17:00)
[2021-11-28] MEDS ORDERED: ATIVAN IV ALCOHOL WITHDRAWL IV PRN (17:23)
[2021-11-28] MEDS ORDERED: LORazepam 2 MG/1 ML VIAL IV PRN ×4 (17:23)
[2021-11-28] MEDS ORDERED: LORazepam 1 MG TAB PO PRN (17:23)
[2021-11-28] MEDS: FOLIC ACID 1 MG TAB PO SCH (19:45)
[2021-11-28] MEDS: THIAMINE HCL 100 MG TAB PO SCH (19:45)
[2021-11-28] MEDS: guaiFENesin 600 MG TABCR PO SCH (19:46)
[2021-11-29] MEDS: AMPICILLIN/SULBACTAM SOD 3,000 MG in 0.9 % SODIUM CHLORIDE 100 ML IV SCH ×5 (00:18→23:49)
[2021-11-29] MEDS ORDERED: cloNIDine HCL 0.1 MG TAB PO ONE (04:03)
--- NOTE | 2021-11-29 08:00 | Hospitalist Progress Note ---
Date of Service November 29, 2021 Assessment & Plan (1) Alcohol intoxication: (2) COVID-19: (3) Unresponsive: (4) Respiratory failure: Plan: This is a 31-year-old male who was found unresponsive, and was intubated on the way to the hospital. 1. Unresponsive - possibly secondary to alcohol intoxication, also has history of COVID, also drinking NyQuil, as per mother drank one bottle of NyQuil in 2 days. - Labs reviewed. His urine drug screen shows salicylates less than 3 and acetaminophen less than 3, positive for benzos, and ethyl alcohol 453. - Discussed with Poison Control as Tylenol level is less than 3 and his LFTs are okay, they want to monitor for now. Mother says he was not suicidal as far as she knows he did not fall and no drinking Antifreeze, he was drinking alcohol. Patient was intubated, self extubated next morning in ICU. Reports that he was drinking alcohol because he was trying to help with COVID symptoms/self medicate. Did not mean to hurt himself in any way. Now says that what he did was "stupid " - continue IV fluids -Downgraded to PCU -Monitor for signs of alcohol withdrawal He is hypertensive, also has history of hypertension IV labetalol prn Previously on lisinopril, currently does not see any PCP, restarted lisinopril BP still elevated, increased lisinopril, added amlodipine continue to monitor BP 2. Possible left lower lobe pneumonia, possible aspiration pneumonitis: Empirically starting on Unasyn. Currently no signs of pneumonia 3. COVID positive: As per mother, he took the vaccine, but not sure about the booster. Will monitor. If any concerns, will start on remdesivir and steroids. 4. Hx of hypertension: Currently quite hypertensive Could be secondary to alcohol withdrawal In the past was on lisinopril, restarted now labetalol IV prn BP still elevated, increased lisinopril, added amlodipine Reports not having PCP, he will need outpatient follow-up DVT prophylaxis: SCDs ordered on admission, possibly secondary to history of epistaxis prior to admission. Continue SCDs. DISPOSITION:PCU Code: full code. Admission and Anticipated Discharge Date Admission Date: November 27, 2021 Subjective Patient found unresponsive after drinking substantial amount of liquor He tested positive at home for COVID (also positive for COVID in ED) Self extubated yesterday morning in ICU He says he was drinking alcohol because he was trying to help with symptoms of COVID. Denies any chest pain, or significant shortness of breath, however was having some headache, and some loss of taste. Currently feels well, he is alert oriented answering questions appropriately Denies any fevers, chills, chest pain, shortness of breath, abdominal pain, nausea vomiting Patient continues to be hypertensive. He states that he has history of hypertension, difficult to control and he also has not seen PCP in a while. Review of Systems Review of Systems: All systems reviewed & are unremarkable except as noted in Subjective Physical Exam Physical Exam: GENERAL:Obese young male, in no acute distress HEENT: NC/AT, EOMI, PERRL NECK: No neck masses. CARDIOVASCULAR: S1 and S2 heard. Regular rate and rhythm. No murmur, no gallop. RESPIRATORY: Normal AP diameter. No accessory muscle use. No wheezing, no crackles. ABDOMEN: Soft, obese, + Bowel sounds, nontender to palpation NEURO:Alert oriented, answers questions appropriately, no facial asymmetry, speech fluent, moves extremities EXTREMITIES: No edema, no erythema seen. Results & Data Results & Data ([facility]) Vital Signs (Past 12 Hours) Vital Signs Temp Pulse Pulse Pulse Resp BP Pulse Ox 11/29/21 05:17 79 164/101 H 11/29/21 03:53 37.1 C 90 20 182/111 H 96 11/29/21 00:29 85 11/28/21 22:21 36.9 C 95 H 18 185/92 H 96 Laboratory Results 11/29/21 11/29/21 11/29/21 Range/Units 07:16 07:16 07:16 WBC 8.85 (4.8-10.8) K/uL RBC 4.79 (4.7-6.1) M/uL Hgb 14.9 (14.0-18.0) g/dL Hct 41.7 L (42-52) % MCV 87.1 (80-100) fL MCH 31.1 (25-34) pg MCHC 35.7 (32-36) g/dL RDW Std Deviation 41.5 (36.4-46.3) fL RDW Coeff of Fili 12.9 (11.5-14.5) % Plt Count 243 (130-400) K/uL MPV 10.4 (7.4-10.4) fL Immature Gran % (Auto) 0.3 % Neut % (Auto) 71.1 % Lymph % (Auto) 19.4 % [place] % (Auto) 8.4 % Eos % (Auto) 0.7 % Baso % (Auto) 0.1 % Neut # (Auto) 6.29 (1.4-6.5) K/uL Lymph # (Auto) 1.72 (1.2-3.4) K/uL [place] # (Auto) 0.74 H (0.11-0.59) K/uL Eos # (Auto) 0.06 (0-0.5) K/uL Baso # (Auto) 0.01 (0-0.2) K/uL Immature Gran # (Auto) 0.03 H (0.00-0.02) K/uL PT 10.6 (9.0-12.0) Seconds INR 1.0 (0.9-1.1) Sodium 139 (136-145) mmol/L Potassium 3.3 L (3.5-5.1) mmol/L Chloride 105 (98-107) mmol/L Carbon Dioxide 25 (21-32) mmol/L Anion Gap 9 (3-11) BUN 7 (6-23) mg/dl Creatinine 0.61 (0.6-1.4) mg/dl Est Cr Clr Drug Dosing 253.1 ml/min Est GFR ( Amer) > 150.0 ml/min Est GFR (Non-Af Amer) 135.0 ml/min BUN/Creatinine Ratio 11.5 (10-20) Glucose 109 H (70-99(Fasting)) mg/dl Calcium 9.0 (8.5-10.1) mg/dl Phosphorus 1.9 L D (2.5-4.9) mg/dl Magnesium 1.8 (1.7-2.4) mg/dl Total Bilirubin 0.6 (0.2-1.0) mg/dl Direct Bilirubin 0.1 (0-0.2) mg/dl AST 20 (13-39) U/L ALT 29 (7-52) U/L Alkaline Phosphatase 80 (34-104) U/L Total Protein 6.9 (6.0-8.3) gm/dl Albumin 4.3 (3.4-5.0) gm/dl Medications Administered Current Inpatient Medications Folic Acid (Folic Acid 1 Mg Tab) [facility] [place] Stop: 12/28/21 17:59 Last Admin: 11/28/21 19:45 Dose: 1 mg Documented by: Guaifenesin (Guaifenesin 600 Mg Tabcr) 600 mg PO Q12 [facility] Stop: 12/28/21 20:59 Last Admin: 11/28/21 19:46 Dose: 600 mg Documented by: Propofol (Diprivan) 1,000 mg in 100 mls @ 0 mls/hr IV .Q0M [facility]; Protocol Stop: 11/30/21 20:14 Last Admin: 11/28/21 13:48 Dose: Not Given Documented by: Ampicillin Sodium/Sulbactam Sodium 3,000 mg/ Sodium Chloride 108 mls @ 200 mls/hr IV Q6H [facility]; Protocol Stop: 12/05/21 00:00 Last Infusion: 11/29/21 05:44 Dose: Infused Documented by: Lisinopril (Lisinopril 10 Mg Tab) 10 mg PO [facility] Stop: 12/29/21 08:59 Lorazepam (Lorazepam 2 Mg/1 Ml Vial) 1 mg IV ONE PRN; Protocol PRN Reason: EtoH Withdrawal AWSS 6-10 Stop: 12/28/21 17:22 Thiamine HCl (Thiamine Hcl 100 Mg Tab) 100 mg PO [facility] Stop: 12/28/21 17:59 Last Admin: 11/28/21 19:45 Dose: 100 mg Documented by:
[2021-11-29 08:18] LABS: Basophils # (auto) 0.01 K/uL (0-0.2); Basophils % (auto) 0.1 %; Eosinophils # (auto) 0.06 K/uL (0-0.5); Eosinophils % (auto) 0.7 %; Hematocrit (blood only) 41.7 % (42-52); Hemoglobin 14.9 g/dL (14.0-18.0); Immature Granulocytes # (auto) 0.03 K/uL (0.00-0.02); Immature Granulocytes % (auto) 0.3 %; Lymphocytes # (auto) 1.72 K/uL (1.2-3.4); Lymphocytes % (auto) 19.4 %; Mean Corpuscular Hemoglobin 31.1 pg (25-34); Mean Corpuscular Hgb Conc 35.7 g/dL (32-36); Mean Corpuscular Volume 87.1 fL (80-100); Mean Platelet Volume 10.4 fL (7.4-10.4); Monocytes # (auto) 0.74 K/uL (0.11-0.59); Monocytes % (auto) 8.4 %; Neutrophils # (auto) 6.29 K/uL (1.4-6.5); Neutrophils % (auto) 71.1 %; Platelet Count 243 K/uL (130-400); RDW Coefficient of Variation 12.9 % (11.5-14.5); RDW Standard Deviation 41.5 fL (36.4-46.3); Red Blood Count 4.79 M/uL (4.7-6.1); White Blood Count 8.85 K/uL (4.8-10.8)
[2021-11-29 08:39] LABS: Prothrombin Time 10.6 Seconds (9.0-12.0)
[2021-11-29 08:50] LABS: Alanine Aminotransferase 29 U/L (7-52); Albumin Level 4.3 gm/dl (3.4-5.0); Alkaline Phosphatase 80 U/L (34-104); Anion Gap 9 (3-11); Aspartate Aminotransferase 20 U/L (13-39); BUN Creatinine Ratio 11.5 (10-20); Bilirubin Direct 0.1 mg/dl (0-0.2); Bilirubin,Total 0.6 mg/dl (0.2-1.0); Blood Urea Nitrogen 7 mg/dl (6-23); Carbon Dioxide 25 mmol/L (21-32); Chloride 105 mmol/L (98-107); Creatinine Clr Calc Pharmacy 253.1 ml/min; Est GFR (African American) > 150.0 ml/min; Glucose 109 mg/dl (70-99(Fasting)); Magnesium 1.8 mg/dl (1.7-2.4); Phosphorus 1.9 mg/dl (2.5-4.9); Potassium 3.3 mmol/L (3.5-5.1); Sodium 139 mmol/L (136-145); Total Protein 6.9 gm/dl (6.0-8.3)
[2021-11-29] MEDS: THIAMINE HCL 100 MG TAB PO SCH (08:51)
[2021-11-29] MEDS: FOLIC ACID 1 MG TAB PO SCH (08:51)
[2021-11-29] MEDS: guaiFENesin 600 MG TABCR PO SCH ×2 (08:51→20:29)
[2021-11-29] MEDS ORDERED: lisinopril 10 MG TAB PO SCH (09:00)
[2021-11-29] MEDS ORDERED: amLODIPine BESYLATE 5 MG TAB PO ONE ×2 (13:00→16:05)
[2021-11-29] MEDS ORDERED: POTASSIUM CHLORIDE CRTAB 20 MEQ TABCR PO STA (13:01)
--- NOTE | 2021-11-29 14:03 | Electrocardiogram Report ---
Test Reason : Blood Pressure : / mmHG Vent. Rate : 078 BPM Atrial Rate : 078 BPM P-R Int : 152 ms QRS Dur : 080 ms QT Int : 398 ms P-R-T Axes : 062 017 062 degrees QTc Int : 453 ms Normal sinus rhythm Normal ECG When compared with ECG of 28-NOV-2021 05:45, No significant change was found Confirmed by Shaggy Mortensen ([id number]) on 11/29/2021 2:03:00 PM Referred By: REFERRED SELF Confirmed By:Shaggy Mortensen
[2021-11-29] MEDS: MAGNESIUM OXIDE 400 MG TAB PO SCH (14:09)
[2021-11-29 15:34] LABS: 7-Aminoclonaz, Confirm NEGATIVE ng/mL (<25); Hydro-Alp Ur, GC/MS NEGATIVE ng/mL (<25); Hydroxyethylflurazepam, Conf NEGATIVE ng/mL (<50); Hydroxymidazolam Ur, GC/MS 640 ng/mL (<50); Hydroxytriazolam NEGATIVE ng/mL (<50); Lorazepam, Ur GC/MS NEGATIVE ng/mL (<50); Nordiazepam, Confirm NEGATIVE ng/mL (<50); Oxazepam Ur, GC/MS NEGATIVE ng/mL (<50); Temazepam, Confirm NEGATIVE ng/mL (<50)
[2021-11-29] MEDS ORDERED: lisinopril 10 MG TAB PO ONE (16:05)
[2021-11-29] MEDS: SODIUM CHLORIDE 0.9% 1000ML 1,000 ML IV SCH (18:52)
[2021-11-30] MEDS: AMPICILLIN/SULBACTAM SOD 3,000 MG in 0.9 % SODIUM CHLORIDE 100 ML IV SCH ×2 (05:23→12:11)
[2021-11-30 07:21] LABS: Basophils # (auto) 0.01 K/uL (0-0.2); Basophils % (auto) 0.1 %; Eosinophils # (auto) 0.14 K/uL (0-0.5); Eosinophils % (auto) 1.8 %; Hematocrit (blood only) 43.6 % (42-52); Hemoglobin 15.3 g/dL (14.0-18.0); Immature Granulocytes # (auto) 0.02 K/uL (0.00-0.02); Immature Granulocytes % (auto) 0.3 %; Mean Corpuscular Hemoglobin 30.2 pg (25-34); Mean Corpuscular Hgb Conc 35.1 g/dL (32-36); Mean Platelet Volume 10.1 fL (7.4-10.4); Monocytes # (auto) 0.59 K/uL (0.11-0.59); Monocytes % (auto) 7.4 %; Neutrophils # (auto) 5.24 K/uL (1.4-6.5); Neutrophils % (auto) 65.4 %; Platelet Count 240 K/uL (130-400); RDW Standard Deviation 40.8 fL (36.4-46.3); Red Blood Count 5.07 M/uL (4.7-6.1)
--- NOTE | 2021-11-30 07:39 | Hospitalist Progress Note ---
Date of Service November 30, 2021 Assessment & Plan (1) Alcohol intoxication: (2) COVID-19: (3) Unresponsive: (4) Respiratory failure: Plan: This is a 31-year-old male who was found unresponsive, and was intubated on the way to the hospital. 1. Unresponsive - possibly secondary to alcohol intoxication, also has history of COVID, also drinking NyQuil, as per mother drank one bottle of NyQuil in 2 days. - Labs reviewed. His urine drug screen shows salicylates less than 3 and acetaminophen less than 3, positive for benzos, and ethyl alcohol 453. - Discussed with Poison Control as Tylenol level is less than 3 and his LFTs are okay, they want to monitor for now. Mother says he was not suicidal as far as she knows he did not fall and no drinking Antifreeze, he was drinking alcohol. Patient was intubated, self extubated next morning in ICU. Reports that he was drinking alcohol because he was trying to help with COVID symptoms/self medicate. Did not mean to hurt himself in any way. Now says that what he did was "stupid " - continued IV fluids -Downgraded to PCU -Monitor for signs of alcohol withdrawal - no signs of withdrawal other than hypertension which seems to be chronic He is hypertensive, also has history of hypertension IV labetalol prn Previously on lisinopril, currently does not see any PCP, restarted lisinopril BP still elevated, increased lisinopril, added amlodipine continue to monitor BP Blood pressure better controlled now, systolic in 150s, diastolic 90s. Discussed in detail that this is not at goal, and he will need to follow-up with his PCP, quit smoking, abstain from alcohol, and stop drinking energy drinks. Patient is in full agreement with that. He does have a blood pressure cuff at home, and will be checking his blood pressure. He is eager for discharge today. 2. Possible left lower lobe pneumonia, possible aspiration pneumonitis: Empirically starting on Unasyn. Currently no signs of pneumonia, stop abx 3. COVID positive: As per mother, he took the vaccine, but not sure about the booster. Will monitor. If any concerns, will start on remdesivir and steroids. - pt has no respiratory symptoms 4. Hx of hypertension: Currently quite hypertensive Could be secondary to alcohol withdrawal In the past was on lisinopril, restarted now labetalol IV prn BP still elevated, increased lisinopril, added amlodipine Reports not having PCP, he will need outpatient follow-up DVT prophylaxis: SCDs ordered on admission, possibly secondary to history of epistaxis prior to admission. Continue SCDs. DISPOSITION:Plan to DC home Code: full code. Admission and Anticipated Discharge Date Admission Date: November 27, 2021 Subjective Patient found unresponsive after drinking substantial amount of liquor He tested positive at home for COVID (also positive for COVID in ED) Self extubated next morning in ICU He says he was drinking alcohol because he was trying to help with symptoms of COVID. Denies any chest pain, or significant shortness of breath, however was having some headache, and some loss of taste. Currently feels well, he is alert oriented answering questions appropriately Denies any fevers, chills, chest pain, shortness of breath, abdominal pain, nausea vomiting Patient continues to be hypertensive. He states that he has history of hypertension, difficult to control and he also has not seen PCP in a while. He is eager to be discharged home today. Says that he will follow-up with his PCP right after discharge. Review of Systems Review of Systems: All systems reviewed & are unremarkable except as noted in Subjective Physical Exam Physical Exam: GENERAL:Obese young male, in no acute distress HEENT: NC/AT, EOMI, PERRL NECK: No neck masses. CARDIOVASCULAR: S1 and S2 heard. Regular rate and rhythm. No murmur, no gallop. RESPIRATORY: Normal AP diameter. No accessory muscle use. No wheezing, no crackles. ABDOMEN: Soft, obese, + Bowel sounds, nontender to palpation NEURO:Alert oriented, answers questions appropriately, no facial asymmetry, speech fluent, moves extremities EXTREMITIES: No edema, no erythema seen. Results & Data Results & Data ([facility]) Vital Signs (Past 12 Hours) Vital Signs Temp Pulse Pulse Resp BP Pulse Ox 11/30/21 03:12 36.6 C 78 16 158/99 H 97 11/30/21 00:25 68 11/29/21 23:53 36.6 C 70 16 155/99 H 97 11/29/21 20:10 36.5 C 78 18 178/108 H 97 Laboratory Results 05/11/30/21 11/30/21 Range/Units 06:44 06:44 06:44 WBC 8.00 (4.8-10.8) K/uL RBC 5.07 (4.7-6.1) M/uL Hgb 15.3 (14.0-18.0) g/dL Hct 43.6 (42-52) % MCV 86.0 (80-100) fL MCH 30.2 (25-34) pg MCHC 35.1 (32-36) g/dL RDW Std Deviation 40.8 (36.4-46.3) fL RDW Coeff of Fili 13.0 (11.5-14.5) % Plt Count 240 (130-400) K/uL MPV 10.1 (7.4-10.4) fL Immature Gran % (Auto) 0.3 % Neut % (Auto) 65.4 % Lymph % (Auto) 25.0 % Schleicher % (Auto) 7.4 % Eos % (Auto) 1.8 % Baso % (Auto) 0.1 % Neut # (Auto) 5.24 (1.4-6.5) K/uL Lymph # (Auto) 2.00 (1.2-3.4) K/uL Schleicher # (Auto) 0.59 (0.11-0.59) K/uL Eos # (Auto) 0.14 (0-0.5) K/uL Baso # (Auto) 0.01 (0-0.2) K/uL Immature Gran # (Auto) 0.02 (0.00-0.02) K/uL PT Pending (9.0-12.0) Seconds INR Pending (0.9-1.1) Sodium Pending (136-145) mmol/L Potassium Pending (3.5-5.1) mmol/L Chloride Pending (98-107) mmol/L Carbon Dioxide Pending (21-32) mmol/L Anion Gap Pending (3-11) BUN Pending (6-23) mg/dl Creatinine Pending (0.6-1.4) mg/dl Est Cr Clr Drug Dosing Pending ml/min Est GFR ( Amer) Pending ml/min Est GFR (Non-Af Amer) Pending ml/min BUN/Creatinine Ratio Pending (10-20) Glucose Pending (70-99(Fasting)) mg/dl Calcium Pending (8.5-10.1) mg/dl Phosphorus Pending (2.5-4.9) mg/dl Magnesium Pending (1.7-2.4) mg/dl Total Bilirubin Pending (0.2-1.0) mg/dl Direct Bilirubin Pending (0-0.2) mg/dl AST Pending (13-39) U/L ALT Pending (7-52) U/L Alkaline Phosphatase Pending (34-104) U/L Total Protein Pending (6.0-8.3) gm/dl Albumin Pending (3.4-5.0) gm/dl U OH-Alprazolam Confrm (<25) ng/mL 7-Amino Clonazepam (<25) ng/mL Ur Nordiazepam Confirm (<50) ng/mL U OH-ethylflurazepam (<50) ng/mL U Lorazepam Cnf GC/MS (<50) ng/mL U Oxazepam Confm GC/MS (<50) ng/mL Ur Temazepam Confirm (<50) ng/mL U OH-Triazolam Confirm (<50) ng/mL U OH-Midazolam Confirm (<50) ng/mL Drug Screen Comment 11/29/21 11/29/21 11/29/21 Range/Units 07:16 07:16 07:16 WBC 8.85 (4.8-10.8) K/uL RBC 4.79 (4.7-6.1) M/uL Hgb 14.9 (14.0-18.0) g/dL Hct 41.7 L (42-52) % MCV 87.1 (80-100) fL MCH 31.1 (25-34) pg MCHC 35.7 (32-36) g/dL RDW Std Deviation 41.5 (36.4-46.3) fL RDW Coeff of Fili 12.9 (11.5-14.5) % Plt Count 243 (130-400) K/uL MPV 10.4 (7.4-10.4) fL Immature Gran % (Auto) 0.3 % Neut % (Auto) 71.1 % Lymph % (Auto) 19.4 % Schleicher % (Auto) 8.4 % Eos % (Auto) 0.7 % Baso % (Auto) 0.1 % Neut # (Auto) 6.29 (1.4-6.5) K/uL Lymph # (Auto) 1.72 (1.2-3.4) K/uL Schleicher # (Auto) 0.74 H (0.11-0.59) K/uL Eos # (Auto) 0.06 (0-0.5) K/uL Baso # (Auto) 0.01 (0-0.2) K/uL Immature Gran # (Auto) 0.03 H (0.00-0.02) K/uL PT 10.6 (9.0-12.0) Seconds INR 1.0 (0.9-1.1) Sodium 139 (136-145) mmol/L Potassium 3.3 L (3.5-5.1) mmol/L Chloride 105 (98-107) mmol/L Carbon Dioxide 25 (21-32) mmol/L Anion Gap 9 (3-11) BUN 7 (6-23) mg/dl Creatinine 0.61 (0.6-1.4) mg/dl Est Cr Clr Drug Dosing 253.1 ml/min Est GFR ( Amer) > 150.0 ml/min Est GFR (Non-Af Amer) 135.0 ml/min BUN/Creatinine Ratio 11.5 (10-20) Glucose 109 H (70-99(Fasting)) mg/dl Calcium 9.0 (8.5-10.1) mg/dl Phosphorus 1.9 L D (2.5-4.9) mg/dl Magnesium 1.8 (1.7-2.4) mg/dl Total Bilirubin 0.6 (0.2-1.0) mg/dl Direct Bilirubin 0.1 (0-0.2) mg/dl AST 20 (13-39) U/L ALT 29 (7-52) U/L Alkaline Phosphatase 80 (34-104) U/L Total Protein 6.9 (6.0-8.3) gm/dl Albumin 4.3 (3.4-5.0) gm/dl U OH-Alprazolam Confrm (<25) ng/mL 7-Amino Clonazepam (<25) ng/mL Ur Nordiazepam Confirm (<50) ng/mL U OH-ethylflurazepam (<50) ng/mL U Lorazepam Cnf GC/MS (<50) ng/mL U Oxazepam Confm GC/MS (<50) ng/mL Ur Temazepam Confirm (<50) ng/mL U OH-Triazolam Confirm (<50) ng/mL U OH-Midazolam Confirm (<50) ng/mL Drug Screen Comment 11/27/21 Range/Units 20:13 WBC (4.8-10.8) K/uL RBC (4.7-6.1) M/uL Hgb (14.0-18.0) g/dL Hct (42-52) % MCV (80-100) fL MCH (25-34) pg MCHC (32-36) g/dL RDW Std Deviation (36.4-46.3) fL RDW Coeff of Fili (11.5-14.5) % Plt Count (130-400) K/uL MPV (7.4-10.4) fL Immature Gran % (Auto) % Neut % (Auto) % Lymph % (Auto) % Schleicher % (Auto) % Eos % (Auto) % Baso % (Auto) % Neut # (Auto) (1.4-6.5) K/uL Lymph # (Auto) (1.2-3.4) K/uL Schleicher # (Auto) (0.11-0.59) K/uL Eos # (Auto) (0-0.5) K/uL Baso # (Auto) (0-0.2) K/uL Immature Gran # (Auto) (0.00-0.02) K/uL PT (9.0-12.0) Seconds INR (0.9-1.1) Sodium (136-145) mmol/L Potassium (3.5-5.1) mmol/L Chloride (98-107) mmol/L Carbon Dioxide (21-32) mmol/L Anion Gap (3-11) BUN (6-23) mg/dl Creatinine (0.6-1.4) mg/dl Est Cr Clr Drug Dosing ml/min Est GFR ( Amer) ml/min Est GFR (Non-Af Amer) ml/min BUN/Creatinine Ratio (10-20) Glucose (70-99(Fasting)) mg/dl Calcium (8.5-10.1) mg/dl Phosphorus (2.5-4.9) mg/dl Magnesium (1.7-2.4) mg/dl Total Bilirubin (0.2-1.0) mg/dl Direct Bilirubin (0-0.2) mg/dl AST (13-39) U/L ALT (7-52) U/L Alkaline Phosphatase (34-104) U/L Total Protein (6.0-8.3) gm/dl Albumin (3.4-5.0) gm/dl U OH-Alprazolam Confrm NEGATIVE (<25) ng/mL 7-Amino Clonazepam NEGATIVE (<25) ng/mL Ur Nordiazepam Confirm NEGATIVE (<50) ng/mL U OH-ethylflurazepam NEGATIVE (<50) ng/mL U Lorazepam Cnf GC/MS NEGATIVE (<50) ng/mL U Oxazepam Confm GC/MS NEGATIVE (<50) ng/mL Ur Temazepam Confirm NEGATIVE (<50) ng/mL U OH-Triazolam Confirm NEGATIVE (<50) ng/mL U OH-Midazolam Confirm 640 H (<50) ng/mL Drug Screen Comment SEE NOTE Medications Administered Current Inpatient Medications Amlodipine Besylate (Amlodipine Besylate 5 Mg Tab) 10 mg PO QAM [facility] Stop: 12/30/21 08:59 Folic Acid (Folic Acid 1 Mg Tab) 1 mg PO QAM [facility] Stop: 12/28/21 17:59 Last Admin: 11/29/21 08:51 Dose: 1 mg Documented by: Guaifenesin (Guaifenesin 600 Mg Tabcr) 600 mg PO Q12 [facility] Stop: 12/28/21 20:59 Last Admin: 11/29/21 20:29 Dose: 600 mg Documented by: Ampicillin Sodium/Sulbactam Sodium 3,000 mg/ Sodium Chloride 108 mls @ 200 mls/hr IV Q6H [facility]ARA; Protocol Stop: 12/05/21 00:00 Last Infusion: 11/30/21 06:00 Dose: Infused Documented by: Lisinopril (Lisinopril 20 Mg Tab) 20 mg PO QAM [facility] Stop: 12/30/21 08:59 Lorazepam (Lorazepam 2 Mg/1 Ml Vial) 1 mg IV ONE PRN; Protocol PRN Reason: EtoH Withdrawal AWSS 6-10 Stop: 12/28/21 17:22 Magnesium Oxide (Magnesium Oxide 400 Mg Tab) [address] [facility] Stop: 12/29/21 13:14 Last Admin: 11/29/21 14:09 Dose: 400 mg Documented by: Thiamine HCl (Thiamine Hcl 100 Mg Tab) [address] [facility] Stop: 12/28/21 17:59 Last Admin: 11/29/21 08:51 Dose: 100 mg Documented by:
[2021-11-30 07:43] LABS: Alanine Aminotransferase 48 U/L (7-52); Albumin Level 4.5 gm/dl (3.4-5.0); Alkaline Phosphatase 82 U/L (34-104); Anion Gap 9 (3-11); Aspartate Aminotransferase 37 U/L (13-39); BUN Creatinine Ratio 11.7 (10-20); Bilirubin Direct 0.1 mg/dl (0-0.2); Bilirubin,Total 0.8 mg/dl (0.2-1.0); Blood Urea Nitrogen 7 mg/dl (6-23); Calcium 9.3 mg/dl (8.5-10.1); Carbon Dioxide 25 mmol/L (21-32); Chloride 106 mmol/L (98-107); Creatinine Clr Calc Pharmacy 257.4 ml/min; Est GFR (African American) > 150.0 ml/min; Est GFR (Non-African American) 135.9 ml/min; Glucose 98 mg/dl (70-99(Fasting)); Phosphorus 2.2 mg/dl (2.5-4.9); Potassium 3.4 mmol/L (3.5-5.1); Prothrombin Time 10.5 Seconds (9.0-12.0); Sodium 140 mmol/L (136-145); Total Protein 7.3 gm/dl (6.0-8.3)
[2021-11-30] MEDS: FOLIC ACID 1 MG TAB PO SCH (07:49)
[2021-11-30] MEDS: MAGNESIUM OXIDE 400 MG TAB PO SCH (07:49)
[2021-11-30] MEDS: guaiFENesin 600 MG TABCR PO SCH (07:50)
[2021-11-30] MEDS: THIAMINE HCL 100 MG TAB PO SCH (07:50)
[2021-11-30] MEDS ORDERED: amLODIPine BESYLATE 5 MG TAB PO SCH ×2 (09:00)
[2021-11-30] MEDS ORDERED: lisinopril 20 MG TAB PO SCH (09:00)
[2021-11-30] MEDS ORDERED: POTASSIUM CHLORIDE CRTAB 20 MEQ TABCR PO STA (11:58)
[2021-11-30] MEDS ORDERED: POT PHOSPHATE MONOBASIC W/ SOD TAB PO SCH (13:00)
--- NOTE | 2021-11-30 13:22 | Discharge Summary ---
Date of Service November 30, 2021 Admission HPI Per Admitting Provider This is a 31-year-old male with no significant past medical history, questionable hypertension, on and off he has nosebleeds, comes because of unresponsiveness at home. The patient is having COVID symptoms for 2 days, had fever, and he was tested with home test on Tuesday, it was positive. As per the mother, he was taking NyQuil and said his fever resolved, but it looks like the last 2 days he took over 1 bottle of NyQuil and today he went to his grandfather's house next door and was drinking alcohol, looks like he drank a bottle of [place], a bottle of [place], and another bottle and mother does not know why he was so heavily today. She went for groceries and when she came back, she tried to ask her son to come up to help her, but he was not waking up. So when she went and tried to wake him up, he was sitting in a chair and was having nose bleeding and was unresponsive. She threw whole jug of water on his face, but he did not wake up. So then they called EMS. Per the EMS, he was unresponsive. He was intubated in the field and given Versed and brought him here. Currently, he is on propofol status post intubation. Hemodynamically stable. As per the mother, she checked his blood pressure machine at home and his blood pressure was in systolic 200s and diastolic in 140s yesterday and 190s /130s. He does not go to doctors. Whenever he is stressed, she thinks may be his blood pressure shoots up and he gets nosebleeds. He is hemodynamically stable currently. LFTs are okay. Creatinine is okay. Urinalysis is negative. Urine drug screen positive for benzos, but otherwise negative. Alcohol level came as 453. SARS-CoV-[address] of the head okay. NO Falls or suicidal as per mother. Admission Exam Per Admitting Provider GENERAL: The patient is status post intubation and sedated. VITAL SIGNS: Temperature afebrile, pulse 72, respiratory rate 20, blood pressure 105/66, oxygen 97% on mechanical vent. HEENT: Pupils sluggish to react. No facial droop seen. Some dried blood from the nostrils seen. NECK: No neck masses. CARDIOVASCULAR: S1 and S2 heard. Regular rate and rhythm. No murmur, no gallop. RESPIRATORY SYSTEM: Normal AP diameter. No accessory muscle use. No wheezing, no crackles. ABDOMEN: Soft, no distention. Bowel sounds present. CENTRAL NERVOUS SYSTEM: Currently status post intubated and sedated. EXTREMITIES: No edema, no erythema seen. Principal Diagnosis Unresponsive secondary to alcohol intoxication Positive COVID-19 Uncontrolled hypertension Discharge Exam GENERAL:Obese young male, in no acute distress HEENT: NC/AT, EOMI, PERRL NECK: No neck masses. CARDIOVASCULAR: S1 and S2 heard. Regular rate and rhythm. No murmur, no gallop. RESPIRATORY: Normal AP diameter. No accessory muscle use. No wheezing, no crackles. ABDOMEN: Soft, obese, + Bowel sounds, nontender to palpation NEURO:Alert oriented, answers questions appropriately, no facial asymmetry, speech fluent, moves extremities EXTREMITIES: No edema, no erythema seen. Discharge Data Allergies Allergy/AdvReac Type Severity Reaction Status Date / Time No Allergy Information Allergy Unresponsiv Verified 11/27/21 21:47 Available e Consultations 11/27/21 21:50 ED Decision to Admit Stat 11/28/21 00:06 Consult Cylinder Loader Routine Ordered Studies 11/27/21 20:07 CT head/brain wo con Stat FINDINGS: No acute intracranial hemorrhage, midline shift or mass effect is present. The ventricular system is unremarkable. The basal cisterns are patent. No extra-axial collections are present. There are no findings to suggest acute dural sinus thrombosis or acute territorial infarct. No significant calvarial abnormalities are present. Ethmoid sinus mucosal thickening is incidentally noted. There are suspected small occipital/upper cervical lymph nodes. IMPRESSION: No acute intracranial findings. Hospital Course (1) Alcohol intoxication: (2) COVID-19: (3) Unresponsive: (4) Respiratory failure: This is a 31-year-old male who was found unresponsive, and was intubated on the way to the hospital. 1. Unresponsive - possibly secondary to alcohol intoxication, also has history of COVID, also drinking NyQuil, as per mother drank one bottle of NyQuil in 2 days. - Labs reviewed. His urine drug screen shows salicylates less than 3 and acetaminophen less than 3, positive for benzos, and ethyl alcohol 453. - Discussed with Poison Control as Tylenol level is less than 3 and his LFTs are okay, they want to monitor for now. Mother says he was not suicidal as far as she knows he did not fall and no drinking Antifreeze, he was drinking alcohol. Patient was intubated, self extubated next morning in ICU. Reports that he was drinking alcohol because he was trying to help with COVID symptoms/self medicate. Did not mean to hurt himself in any way. Now says that what he did was "stupid " - continued IV fluids -Downgraded to PCU -Monitor for signs of alcohol withdrawal - no signs of withdrawal other than hypertension which seems to be chronic He is hypertensive, also has history of hypertension IV labetalol prn Previously on lisinopril, currently does not see any PCP, restarted lisinopril BP still elevated, increased lisinopril, added amlodipine continue to monitor BP Blood pressure better controlled now, systolic in 150s, diastolic 90s. Discussed in detail that this is not at goal, and he will need to follow-up with his PCP, quit smoking, abstain from alcohol, and stop drinking energy drinks. Patient is in full agreement with that. He does have a blood pressure cuff at home, and will be checking his blood pressure. He is eager for discharge today. 2. Possible left lower lobe pneumonia, possible aspiration pneumonitis: Empirically starting on Unasyn. Currently no signs of pneumonia, stop abx 3. COVID positive: As per mother, he took the vaccine, but not sure about the booster. Will monitor. If any concerns, will start on remdesivir and steroids. - pt has no respiratory symptoms 4. Hx of hypertension: Currently quite hypertensive Could be secondary to alcohol withdrawal In the past was on lisinopril, restarted now labetalol IV prn BP still elevated, increased lisinopril, added amlodipine Reports not having PCP, he will need outpatient follow-up Total Time Total Time Spent Total Time Spent (In Minutes): 40 Discharge Plan Discharge Items Patient Disposition: Home - Self-Care Reason For Visit: UNRESPONSIVE Discharge Diagnosis: Unresponsive secondary to alcohol intoxication Positive COVID-19 Uncontrolled hypertension Activity: Per Instructions section Non-emergency contact: Primary Care Provider Call non-emergency contact if: you have any medication questions and your symptoms worsen Follow-up/Referrals: PCP,NO [Primary Care Provider] - Diet: Heart Healthy and Low Sodium (2gm) Addtl Attending Provider Instructions: Follow-up with the primary care doctor within 1 week. Your blood pressure was poorly controlled, you were started on new medications, lisinopril and amlodipine. Take them as prescribed. Recommend taking a blood pressure at home couple times a day, and record these numbers. Discuss these numbers with your primary care provider. Recommend smoking cessation, abstinence from alcohol, and avoiding energy drinks. Also recommend low-sodium diet, and weight loss. Addtl Gang Sawyer Provider Instructions: Coronavirus disease 2019 (COVID-19) is a virus that causes a respiratory illness. It is caused by a coronavirus called 2019 novel coronavirus (2019- nCoV). There are many types of coronavirus. Coronaviruses are a very common cause of bronchitis. They may sometimes cause lung infection(pneumonia). Symptoms can range from mild to severe respiratory illness. These viruses are also foundin some animals. COVID-19 was first found in people in [facility], in late 2018. In 2020, several cases of COVID-19 have been confirmed in the [place] Public health officials are working to find the source. How the virus spreads is not yet fully known. It may be spread through droplets of fluid that a person coughs or sneezes into the air. It may be spread if you touch a surface with virus on it, such as a handle or object, and then touch your mouth. What are the symptoms of COVID-19? Some people have no symptoms or mild symptoms. Symptoms may appear 2 to 14 days after contact with the virus. Symptoms can include: Fever Coughing Trouble breathing What are possible complications from COVID-19? In many cases, this virus can cause infection (pneumonia) in both lungs. In some cases, this can cause . How is COVID-19 diagnosed? Your healthcare provider will ask about your symptoms. He or she will also ask about your recent travel and contact with sick people. Testing for the virus is only done through the CDC. If yourhealthcare provider thinks you may have COVID- 19, he or she will work with your local health department and the CDC on testing. Follow all instructions from your healthcare provider. COVID-19 is diagnosed by: Nasal and throat swab. A cotton-tipped swab is wiped inside your nose or throat. This is done to check for viruses in your nasal mucus. Sputum culture. A small sample of mucus coughed from your lungs (sputum) is collected if you have a cough. It is checked for the virus. How is COVID-19 treated? There is currently no medicine to treat the virus. Treatment is done to help your body while it fights the virus. This is known as supportive care. Supportive care may include: Pain medicine. These include acetaminophen and ibuprofen. They are used to help ease pain and reduce fever. Bed rest. This helps your body fight the illness. For severe illness, you may need to stay in the hospital. Care during severe illness may include: IV (intravenous) fluids.These are given through a vein to help keep your body hydrated. Oxygen. Supplemental oxygen or ventilation with a breathing machine (ventilator) may be given. This is done to keep enough oxygen in your body. Are you at risk for COVID-19? If youve been to a place where people have been sick with this virus, you are at risk for infection. You are at risk if you: Recently traveled to an affected area Had contact with a sick person who recently traveled to this area Had contact with a person who was diagnosed with COVID-19 How can COVID-19 be prevented? There is no vaccine yet. The best prevention is to not have contact with the virus. The CDC advises that people should not travel to areas where there are COVID-19 outbreaks right now for any reason that is not urgent. To help prevent spreading the infection, wash your hands often, or use an alcohol-basedhand air conditioning unit tester. If you are in an area with COVID-19: Wash your hands often. Or use an alcohol-based hand air conditioning unit tester often. Only touch your eyes, nose, or mouth with clean hands. Dont have contact with people who are sick. Follow local instructions about being in public. For example, you may be told to not use public transport for a period of time. Stay away from markets that have live or animals. Wash your hands after touching any animals. Don't touch animals that may be sick. Dont share eating or drinking tools with sick people. Dont kiss someone who is sick. Clean surfaces often with disinfectant. If you were in an area with COVID-19 in the last 14 days: Call your healthcare provider. He or she can talk with local health staff to see what action may be needed. Follow all instructions from your provider. Take your temperature every morning and evening for at least 14 days. This is to check for fever. Keep a record of the readings. Keep watch for symptoms of the virus. Tell your provider right away if you have symptoms. If you were in an area with COVID-19 and have a fever or other symptoms: Dont panic. Keep in mind that other illnesses can cause similar symptoms. Stay away from work, school, and public places. Limit physical contact with family members. Don't kiss anyone or share eating or drinking utensils. Clean surfaces you touch with disinfectant. This is to help prevent the virus from spreading. Call your healthcare provider. Explain that you have been exposed to COVID-19 and have symptoms. Do this before going to any hospital. Wait for instructions. Keep in mind that healthcare staff may wear protective equipment such as masks, gowns, gloves, and eye protection. You may be put in a separate room. This is to prevent the possible virus from spreading. Tell the healthcare staff about recent travel. This includes local travel on public transport. Staff may need to find other people you have been in contact with. Follow all instructions the healthcare staff give you. If you have been diagnosed with COVID-19 Follow all instructions from your healthcare provider. Dont leave your home, except to get medical care. Call your healthcare providers office before going. They can prepare and give you instructions. This will help prevent the virus from spreading. Dont go to work, school, or public areas. Dont use public transport or taxis. Stay away from other people in your home. Have them wear face masks around you. Dont share household items or food. Wear a face mask if you can. This includes at home or in a medical facility. Cover your face with a tissue when you cough or sneeze. Throw the tissue away. Wash your hands. Wash your hands often. Caregivers should: Follow all instructions from healthcare staff. Wear a face mask and protective clothing as advised. Wash hands often. Keep track of the sick persons symptoms. Clean surfaces, fabrics, and laundry thoroughly. Keep other people away from the sick person. When to call your healthcare provider Call your healthcare provider: If youve recently traveled and have symptoms If you have been diagnosed with COVID-19 and your symptoms are worse To learn more To find out more about COVID-19, visit the CDC website at www.cdc.gov/coronavirus/2019-ncov/index.html. The [employer]. [address] [place] [address], [place] [address]. All rights reserved. This information is not intended as a substitute for professional medical care. Always follow your healthcare professional's instructions. This information has been adapted from [employer] Home Isolation COVID-19 Instructions The following information about Home Isolation is from the CDC Website: https://www.cdc.gov/coronavirus/2019-ncov/hcp/upbcvmgv-zlegieu-nmcioq.html Stay home except to get medical care People who are mildly ill with COVID-19 are able to isolate at home during their illness. You should restrict activities outside your home, except for getting medical care. Do not go to work, school, or public areas. Avoid using public transportation, ride-sharing, or taxis. Separate yourself from other people and animals in your home People: As much as possible, you should stay in a specific room and away from other people in your home. Also, you should use a separate bathroom, if available. Animals: You should restrict contact with pets and other animals while you are sick with COVID-19, just like you would around other people. Although there have not been reports of pets or other animals becoming sick with COVID-19, it is still recommended that people sick with COVID-19 limit contact with animals until more information is known about the virus. When possible, have another member of your household care for your animals while you are sick. If you are sick with COVID-19, avoid contact with your pet, including petting, snuggling, being kissed or licked, and sharing food. If you must care for your pet or be around animals while you are sick, wash your hands before and after you interact with pets and wear a face mask. Call ahead before visiting your doctor If you have a medical appointment, call the healthcare provider and tell them that you have or may have COVID-19. This will help the healthcare providers office take steps to keep other people from getting infected or exposed. Wear a face mask You should wear a face mask when you are around other people (e.g., sharing a room or vehicle) or pets and before you enter a healthcare providers office. If you are not able to wear a face mask (for example, because it causes trouble breathing), then people who live with you should not stay in the same room with you, or they should wear a face mask if they enter your room. Cover your coughs and sneezes Cover your mouth and nose with a tissue when you cough or sneeze. Throw used tissues in a lined trash can. Immediately wash your hands with soap and water for at least 20 seconds or, if soap and water are not available, clean your hands with an alcohol-based hand air conditioning unit tester that contains at least 60% alcohol. Clean your hands often Wash your hands often with soap and water for at least 20 seconds, especially after blowing your nose, coughing, or sneezing; going to the bathroom; and before eating or preparing food. If soap and water are not readily available, use an alcohol-based hand air conditioning unit tester with at least 60% alcohol, covering all surfaces of your hands and rubbing them together until they feel dry. Soap and water are the best option if hands are visibly dirty. Avoid touching your eyes, nose, and mouth with unwashed hands. Avoid sharing personal household items You should not share dishes, drinking glasses, cups, eating utensils, towels, or bedding with other people or pets in your home. After using these items, they should be washed thoroughly with soap and water. Clean all high-touch surfaces everyday High touch surfaces include counters, tabletops, doorknobs, bathroom fixtures, toilets, phones, keyboards, tablets, and bedside tables. Also, clean any surfaces that may have blood, stool, or body fluids on them. Use a household cleaning spray or wipe, according to the label instructions. Labels contain instructions for safe and effective use of the cleaning product including precautions you should take when applying the product, such as wearing gloves and making sure you have good ventilation during use of the product. Monitor your symptoms Seek prompt medical attention if your illness is worsening (e.g., difficulty breathing).Beforeseeking care, call your healthcare provider and tell them that you have, or are being evaluated for, COVID-19. Put on a face mask before you enter the facility. These steps will help the healthcare providers office to keep other people in the office or waiting room from getting infected or exposed. Ask your healthcare provider to call the local or state health department. Persons who are placed under active monitoring or facilitated self- monitoring should follow instructions provided by their local health department or occupational health professionals, as appropriate. When working with your local health department check their available hours. If you have a medical emergency and need to call 911, notify the dispatch personnel that you have, or are being evaluated for COVID-19. If possible, put on a face mask before emergency medical services arrive. Discontinuing home isolation Patients with confirmed COVID-19 should remain under home isolation precautions until the risk of secondary transmission to others is thought to be low. The decision to discontinue home isolation precautions should be made on a [id number] basis, in consultation with healthcare providers and state and local health departments. Pending Studies at Discharge: No Stand-Alone Forms: [facility], Work/School Release, Smoking Cessation Medications and DC Order Prescriptions: New amlodipine [Norvasc] 5 mg Tablet 10 mg PO QAM Qty: 30 RF: 0 lisinopril 20 mg Tablet 20 mg PO QAM Qty: 30 RF: 0 thiamine HCl (vitamin B1) 100 mg Tablet 100 mg PO QAM Qty: 10 RF: 0 folic acid 1 mg Tablet 1 mg PO QAM Qty: 10 RF: 0 guaifenesin [Mucinex] 600 mg Tablet Extended Release 12hr 600 mg PO Q12 Qty: 10 RF: 0 Discharge Orders: Discharge Order (Routine); Ordered 11/30/21 Ordered By: Von Brown Admission Data Admit Date/Time: 11/27/21 22:39 Attending Provider: Von Brown Admit Provider: Delgado Worrell Primary Care Provider: PCP,NO Other Providers: Delgado Worrell ; Prashant Arceo
== END 2021-11-30 14:00 | disposition home or self-care (01) | DRG 917 ==
LOC: EDBD → ED 19:52 → 1E 22:39 → 2S 11-28 18:25